=== PATIENT | male | born 1960 ===

== ENCOUNTER 2019-12-24 13:08 | Emergency (ER) | payer BC, SELFPAY ==
[2019-12-24 13:45] VITALS: BP 148/86; BP 160/110; PULSE 118; PULSE 96; RESP 18; TEMP 37.2; O2SAT 95; O2SAT 96; BMI 30.1
--- NOTE | 2019-12-24 13:53 | ED_ITS ---
HPI - Extremity Problem General Chief complaint: Extremity Problem Stated complaint: rt hip - leg pain Time Seen by Provider: 12/24/19 13:50 Source: patient Mode of arrival: ambulatory Limitations: no limitations History of Present Illness HPI Narrative: 59-year-old male with no significant past medical history presenting to the ED with complaints of atraumatic right hip pain radiating down to his right leg For a few days worse today reports he has a history of sciatica and is similar when compared to prior. Denies any other injuries complaints or concerns at this time. Related Data Allergies Allergy/AdvReac Type Severity Reaction Status Date / Time No Known Allergies Allergy Verified 12/24/19 13:44 [No Known Allergies*] Review of Systems Review of Systems: Constitutional : No trauma, No Weight loss, No Fever, No Chills, ENT/Mouth : No Hearing loss, No Ear Pain, No Nasal Congestion, No Sinus Pain, No Hoarseness, No sore throat, No Rhinorrhea, No Swallowing Difficulty Cardiovascular : No Chest Pain, No SOB Respiratory : No Cough, No Dyspnea Gastrointestinal : No Nausea, No Vomiting, No Diarrhea, No abdominal Pain, No Hematochezia, No Melena Genitourinary : No Dysuria, No Urinary Frequency, No Hematuria, No Urinary Incontinence, Musculoskeletal : No neck pain, No joint stiffness, No joint swelling Skin : No Skin Lesions, No rash or signs of infection Neuro : No Weakness, No headache, no loss of bowel or bladder incontinence, no saddle anesthesia Yes all other systems are reviewed and are negative PMFSH Past Medical History Attestation statement: The following information was validated with the patient. Medical History No known health problems Social History Social History Alcohol intake: current Alcohol intake frequency: 0-2 drinks per day Alcohol type: hard liquor Smoking Status: Never smoker Use of substances other than those prescribed or required for medical reasons: No Advance Directives: No Advance Directives Information Provided: No Physical Exam Vital Signs: Vital Signs: Vital Signs Temp Pulse Resp BP Pulse Ox 12/24/19 13:45 99 F 96 18 148/86 H 96 Body Mass Index 30.1 vital signs have been reviewed as normal and appeared to be correct. Blood pressure normal. Heart rate normal. Respiration rate normal. Temperature normal. Oxygen saturation normal. Appearance: Alert. Oriented X3. No acute distress. Head: Normal external exam. Normocephalic. Atraumatic. No Hernandez signs noted. No raccoon eyes noted Eyes: PERRLA. EOMI. Conjunctiva and sclera normal. Eyelids normal. ENT: EAC normal. TM's Normal. Pharynx normal. Uvula midline. Moist mucous membranes. No trismus noted. No drooling noted. No muffled voice noted. Neck: Normal inspection. Neck supple. FROM. No adenopathy. Thyroid Normal. No meningeal signs. No neck mass noted. CVS: Normal heart rate and rhythm. Heart sound normal. No murmurs noted. Pulses normal throughout. Respiratory: No respiratory distress. Painless inspiration. Breath sounds normal. No wheezes/rales/rhonchi noted. Chest nontender. No accessory muscle usage noted or decreased air movement noted. Abdomen: Soft and nontender. Bowel sounds normal in all 4 quadrants. No distention noted. No organomegaly noted. No visible injury noted. Back:No obvious deformities, or edema. Mild para-spinal muscular tenderness from lumbar region to coccyx. Full ROM in back and lower extremities. 5/5 strength hip extension/flexion, abduction, adduction. Mild Lumbar pain with hip flexion against resistance. Straight leg raise test negative on right; Straight leg raise test negative on left; Reflexes normal ankle and knee bilaterally; EHL motor strength normal bilaterally. no rashes/ lesion /induration/fluctuance or signs infection normal. patient has a slight limp to right leg although gait is otherwise within normal limits. Skin: Skin warm and dry. Normal skin color. Normal skin turgor. No rashes/lesi ons/lacerations noted. Extremities: No lower extremity edema. Extremities exhibit normal range of motion. Extremities nontender. Neuro: Oriented X 3. No motor deficit. No sensory deficit. Reflexes normal. Course Course Course Narrative: Pt c likely muscular pain, but could be herniated disc. Neuro exam shows no deficits. Not c/w AAA/epidural abscess/dissection. Not c/w Pyelo/UTI/kidney stone/spinal fx. Not cauda equina syndrome. No high risk Hx (Incont, fever, immunosupp, recent surgery/LP, coag, signif trauma, wt loss, puls mass, hx/o Ca, TB, or IVDU) to warrant MRI/CT today. DC c meds and f/u. MDM - Extremity (Nontraumatic) Imaging Data right hip/pelvis: Attestation: I personally reviewed and interpreted this imaging study as follows: Radiologist's impression: FINDINGS: AP PELVIS: There is normal symmetry of bilateral hip joints and SI joints. No gross bony abnormality seen. The soft tissues are normal. RIGHT HIP: There is no visible fracture, dislocation or bony erosive changes. The soft tissues are normal. IMPRESSION: Unremarkable AP pelvis. Unremarkable right hip exam.
--- NOTE | 2019-12-24 14:30 | XR_ITS ---
EXAMINATION: XR HIP, RIGHT CLINICAL INFORMATION: Right hip pain. COMPARISON: None TECHNIQUE: Two views of the right hip. AP view pelvis FINDINGS: AP PELVIS: There is normal symmetry of bilateral hip joints and SI joints. No gross bony abnormality seen. The soft tissues are normal. RIGHT HIP: There is no visible fracture, dislocation or bony erosive changes. The soft tissues are normal. IMPRESSION: Unremarkable AP pelvis. Unremarkable right hip exam.
[2019-12-24] MEDS: NaPROXEN 500 MG TABLET PO (14:53)
[2019-12-24] MEDS: oxyCODONE HCl Immed Release 5 MG TABLET PO (14:54)
[2019-12-24] MEDS: dexAMETHasone 2 MG TABLET 10 MG PO (14:55)
== END 2019-12-24 16:16 | disposition home or self-care (01) ==
PROVIDERS: Emergency Provider Emergency Medicine; PCP Internal Medicine
DX: S76.011A Strain of muscle, fascia and tendon of right hip, initial encounter (principal); X58.XXXA Exposure to other specified factors, initial encounter; M70.71 Other bursitis of hip, right hip; Y93.9 Activity, unspecified; Y92.9 Unspecified place or not applicable; Y99.9 Unspecified external cause status
CPT/HCPCS: 73502; 99283; 99284; J8540

== ENCOUNTER → 2019-12-31 11:30 | Outpatient (BNVA) | payer BC, SELFPAY | PROVIDERS: PCP Internal Medicine; Visit Provider Internal Medicine | DX: Z76.89 Persons encountering health services in other specified circumstances (principal) ==

== ENCOUNTER → 2020-02-03 11:05 | Outpatient (BNVA) | payer BC, SELFPAY | PROVIDERS: Visit Provider Internal Medicine | DX: Z76.89 Persons encountering health services in other specified circumstances (principal) ==

== ENCOUNTER → 2020-04-26 11:31 | Outpatient (BNVA) | payer BC, SELFPAY | PROVIDERS: Visit Provider Internal Medicine ==

== ENCOUNTER 2020-05-29 11:35 | Inpatient (IN) | payer BC, SELFPAY ==
--- NOTE | ~2020-05-29 | CT_ITS ---
EXAMINATION: CT HEAD WITHOUT CONTRAST CLINICAL INFORMATION: Seizure COMPARISON: Head CT 04/08/2014 TECHNIQUE: Contiguous axial imaging was performed from the skull base to vertex without intravenous administration of contrast. Reformatted coronal and sagittal images are provided for interpretation. Examination is limited due to motion artifact. This CT examination was performed using dose optimization techniques as appropriate, variously including the following: *Automated exposure control *Adjustment of mA and/or kV according to patient size (this includes techniques or standardized protocols for targeted exams where dose is matched to indication/reason for exam; i.e. extremities or head) *Use of iterative reconstruction technique DLP: 1352 mGy-cm FINDINGS: There is no evidence of acute intracranial hemorrhage or territorial infarction. No abnormal mass effect or midline shift is seen. [place] to white matter differentiation is well preserved. No extra-axial fluid collections are identified. The ventricles are normal in size. There is no abnormal attenuation within the brain parenchyma. Small to moderate sized suspected hematoma of the left parietal scalp. No underlying osseous abnormality. The mastoid air cells and visualized portions of the paranasal sinuses are well aerated. CT/CT head/brain wo con IMPRESSION: 1. Moderate-sized hematoma of the left parietal scalp. 2. No acute intracranial pathology.
--- NOTE | ~2020-05-29 | US_ITS ---
EXAMINATION: US ABDOMEN COMPLETE CLINICAL INFORMATION: Hepatitis. COMPARISON: Previous abdominal ultrasound most recent September 2019 TECHNIQUE: Real-time imaging of the abdominal viscera. FINDINGS: PANCREAS: Not visualized due to bowel gas. ABDOMINAL AORTA: The proximal, mid, and distal segments are normal in caliber. INFERIOR VENA CAVA: Visualized portions are normal. LIVER: The liver is normal in size. The liver contour is normal. Liver echotexture is increased. No focal hepatic lesion. There is no intrahepatic biliary duct dilatation seen. GALLBLADDER: Normal. The gallbladder is physiologically distended without evidence of stones, sludge, polyps, wall thickening or pericholecystic fluid. COMMON BILE DUCT: Normal in caliber measuring 0.3 cm in diameter. RIGHT KIDNEY: Normal. No hydronephrosis. No renal calculi or focal parenchymal lesions. The kidney measures 11 cm in maximum dimension. LEFT KIDNEY: Normal. No hydronephrosis. No renal calculi or focal parenchymal lesions. The kidney measures 12 cm in maximum dimension. SPLEEN: Normal. The spleen measures 10 cm in maximum dimension. FREE FLUID: None. US/US abdomen complete IMPRESSION: Echogenic liver similar to previous exam. No evidence of cirrhosis, focal liver lesion or ascites. Nonvisualization of the pancreas.
[2020-05-29 11:43] VITALS: BP 146/69; BP 150/130; PULSE 110; PULSE 127; RESP 24; TEMP 37.2; O2SAT 97; BMI 28.8
--- NOTE | 2020-05-29 11:49 | ED_ITS ---
HPI - Seizure General Chief Complaint: Seizure Stated Complaint: ? SZ,FOUND ON FLOOR @ WORK Time Seen by Provider: 05/29/20 11:39 History of Present Illness HPI Narrative: This is a 59 years old male with history of alcohol abuse was found in the floor outside the store after possible seizure. Upon the arrival of the EMS he was postictal gradually return to is normal sensorium. He arrives via awake and alert he states that his last drink was 3 days ago. He does not want detox is not suicidal. He is very tremulous Treatments prior to arrival: none Related Data Home Medications Medication Instructions Recorded Confirmed clonidine HCl 1 tab PO BID 05/29/20 05/29/20 lisinopril 1 tab PO DAILY 05/29/20 05/29/20 Previous Rx's Medication Instructions Recorded naproxen 500 mg PO BID PRN #14 tab 12/24/19 oxycodone-acetaminophen [Percocet] 1 tab PO Q6H PRN #14 tab 12/24/19 naltrexone 50 mg tablet 50 mg PO DAILY 30 Days #30 tab 04/26/20 Allergies Allergy/AdvReac Type Severity Reaction Status Date / Time No Known Allergies Allergy Verified 05/29/20 11:49 [No Known Allergies*] Review of Systems Review of Systems: Yes all other systems are reviewed and are negative Cardiovascular: Comments: Denies any chest pain Respiratory: Comments: Denies any shortness of breath PMFSH Past Medical History Medical History Alcohol use disorder Alcohol use disorder No known health problems Social History Social History Alcohol intake: current Alcohol intake frequency: 0-2 drinks per day Alcohol type: hard liquor Smoking Status: Never smoker Advance Directives: No Advance Directives Information Provided: Yes Physical Exam Vital Signs: Vital Signs: Last Vital Signs Temp 99.2 F 05/29/20 14:19 Pulse 97 05/29/20 14:19 Resp 18 05/29/20 14:19 BP 150/76 H 05/29/20 14:19 Pulse Ox 99 05/29/20 14:19 Body Mass Index 28.8 Const: Other: He is awake and alert he is very tremulous Orientation/consciousness: oriented to person, oriented to place, oriented to time and patient oriented x3 HENMT: Head: Yes normal to inspection Ears: hearing grossly normal bilater ally General nose exam: Normal external nose present Face and sinus: Yes normal facial exam Eyes: General: appearance normal, both eyes and all related structures Neck: Neck: Yes normal visual inspection Chest: Chest palpation & inspection: normal inspection of the chest and normal palpation of entire chest wall Resp: Effort & Inspection: normal respiratory effort Cardio: Palpation: normal PMI Rate: regular rate Rhythm: regular rhythm GI: Other: Soft not tender Skin: General skin exam: no rashes or lesions noted Neuro: General: oriented to person, oriented to place, oriented to time and patient oriented x3 Course Reevaluation(s) Reevaluation #1: At this time and the patient is feeling much better his initial tachycardia is completely resolved . He he does not want detox he has no suicidalhe would like to go home Time: 14:05 Time: 14:54 Reevaluation #3: Patient became more agitated confused pull the IV, at this point I think is reasonable to me depression the for alcohol withdrawal and will start him on phenobarbital protocol will place a call to the hospitalist MDM - Seizure Lab Data Result diagrams: 05/29/20 12:07 05/29/20 12:07 Labs: Lab Results 05/29/20 05/29/20 05/29/20 Range/Units 12:07 12:07 12:07 WBC 6.2 (4.8-10.8) X10*3/uL RBC 3.69 L (4.60-5.80) X10*6/uL Hgb 12.3 L (14.0-18.0) g/dl Hct 36.2 L (42-52) % MCV 98.1 H (80-98) fL MCH 33.3 H (27.0-33.0) pg MCHC 34.0 (31.0-36.0) g/dl RDW 12.5 (11.0-16.0) % Plt Count 60 L (160-400) X10*3/uL MPV 9.7 (9.4-12.4) fL Immature Gran % (Auto) 0.3 (0.0-0.4) % Neut % (Auto) 80.4 H (45-73) % Lymph % (Auto) 10.6 L (20-40) % [place] % (Auto) 8.2 (2-11) % Eos % (Auto) 0.2 (0-4) % Baso % (Auto) 0.3 (0-2) % Lymph # (Auto) 0.7 L (1.2-4.9) X10*3/uL [place] # (Auto) 0.5 (0.1-1.2) X10*3/uL Eos # (Auto) 0.0 (0.0-0.4) X10*3/uL Baso # (Auto) 0.0 (0.0-0.2) X10*3/uL Abs Immat Gran (auto) 0.02 (0.00-0.03) X10*3/uL Absolute Neuts (auto) 5.0 (2.0-8.3) X10*3/uL Absolute Nucleated RBC 0.000 (0.0-0.012) X10*3/uL Nucleated RBC % (auto) 0.0 (0.0-0.2) /100WBC Smear Tech's Comments VERIFIED Sodium 139 (135-145) mmol/L Potassium 3.4 (3.3-5.1) mmol/L Chloride 97 (96-108) mmol/L Carbon Dioxide 24 (22-29) mmol/L Anion Gap 21 H (12-20) BUN 16 (9-16) mg/dL Creatinine 1.05 (0.5-1.4) mg/dL Estim Creat Clear Calc 79.9 Estimated GFR > 60 Random Glucose 174 H (60-115) mg/dL Calcium 9.0 (8.4-10.2) mg/dL Magnesium 1.7 (1.6-2.6) mg/dL Total Bilirubin 2.4 H (0.0-1.0) mg/dL AST 117 H (5-37) U/L ALT 41 H (0-40) U/L Alkaline Phosphatase 91 (39-117) U/L Total Protein 6.7 (6.5-8.0) g/dL Albumin 4.3 (3.5-5.0) g/dL Ethyl Alcohol < 10 mg/dL Imaging Data CT scan - head: Radiologist's impression: FINDINGS: There is no evidence of acute intracranial hemorrhage or territorial infarction. No abnormal mass effect or midline shift is seen. Tomlin to white matter differentiation is well preserved. No extra-axial fluid collections are identified. The ventricles are normal in size. There is no abnormal attenuation within the brain parenchyma. Small to moderate sized suspected hematoma of the left parietal scalp. No underlying osseous abnormality. The mastoid air cells and visualized portions of the paranasal sinuses are well aerated. CT/CT head/brain wo con IMPRESSION: 1. Moderate-sized hematoma of the left parietal scalp. 2. No acute intracranial pathology. ECG Data Attestation: I personally reviewed and interpreted this ECG as follows: ECG interpretation date: 05/29/20 ECG interpretation time: 12:54 Pacemaker model: Normal sinus rhythm a rate these [address]-T change Critical Care Time Critical Care Time Critical Care Time: Yes (IV lorazepam ;IM phenobarbital) Total Critical Care Time: 60 Attestation: IV lorazepam a to 2 mg , IM phenobarbital a Discharge Plan Discharge Clinical Impression: Alcohol withdrawal seizure Patient Disposition: Admitted As Inpatient
[2020-05-29] MEDS: LORazepam 2 MG/ML VIAL 1 MG IVPUSH ×2 (11:55→12:01)
[2020-05-29] MEDS: 0.9 % Sodium Chloride 1,000 ML 999 ML IVCONT (11:55)
--- NOTE | 2020-05-29 12:09 | PC.NURSE ---
seizure pads in place. pt medicated as per emr.
--- NOTE | 2020-05-29 12:10 | ECG_ITS ---
Test Reason : SEIZURE Blood Pressure : / mmHG Vent. Rate : 106 BPM Atrial Rate : 106 BPM P-R Int : 166 ms QRS Dur : 092 ms QT Int : 366 ms P-R-T Axes : 053 021 033 degrees QTc Int : 486 ms Sinus tachycardia Otherwise normal ECG When compared with ECG of 08-APR-2014 20:20, No significant change was found Referred By: Maurilio Mejia Electronically Signed By:NA HERNANDEZ
[2020-05-29 12:15] LABS: Eosinophils Percent Auto 0.2 % (0-4); Hemoglobin 12.3 g/dl (14.0-18.0); Imm Gran Abs Auto 0.02 X10*3/uL (0.00-0.03); Imm Gran Pct Auto 0.3 % (0.0-0.4); MANUAL DIFF FLAG SCAN; Monocytes Percent Auto 8.2 % (2-11); PLT CLUMP 1; Red Cell Distribution Width 12.5 % (11.0-16.0); SCAN SMEAR FLAG 1
[2020-05-29 12:17] LABS: Basophils Percent Auto 0.3 % (0-2); Hematocrit 36.2 % (42-52); Lymphocytes Absolute Auto 0.7 X10*3/uL (1.2-4.9); Lymphocytes Percent Auto 10.6 % (20-40); Mean Corpuscular Hemoglobin 33.3 pg (27.0-33.0); Mean Corpuscular Volume 98.1 fL (80-98); Mean Platelet Volume 9.7 fL (9.4-12.4); Monocytes Absolute Auto 0.5 X10*3/uL (0.1-1.2); Neutrophils Percent Auto 80.4 % (45-73); Red Blood Count 3.69 X10*6/uL (4.60-5.80); White Blood Count 6.2 X10*3/uL (4.8-10.8)
[2020-05-29 12:46] LABS: Alanine Aminotransferase 41 U/L (0-40); Albumin Level 4.3 g/dL (3.5-5.0); Alkaline Phosphatase 91 U/L (39-117); Anion Gap 21 (12-20); Aspartate Amino Transferase 117 U/L (5-37); Bilirubin Total 2.4 mg/dL (0.0-1.0); Blood Urea Nitrogen 16 mg/dL (9-16); Carbon Dioxide 24 mmol/L (22-29); Chloride 97 mmol/L (96-108); Creatinine Clr Calc Pharmacy 79.9; Estimated Glomerular Filt Rate > 60; Glucose Random 174 mg/dL (60-115); Magnesium 1.7 mg/dL (1.6-2.6); Potassium 3.4 mmol/L (3.3-5.1); Sodium 139 mmol/L (135-145); Total Protein 6.7 g/dL (6.5-8.0)
[2020-05-29 12:47] LABS: Platelet Count 60 X10*3/uL (160-400)
[2020-05-29 12:48] LABS: SLIDE REVIEW VERIFIED
[2020-05-29 12:54] LABS: Ethanol < 10 mg/dL
[2020-05-29 14:19] VITALS: BP 150/76; PULSE 97; RESP 18; TEMP 37.3; O2SAT 99
[2020-05-29] MEDS: PHENobarbitaL sodium 130 MG/ML VIAL 274 MG IM (14:50)
--- NOTE | 2020-05-29 14:50 | PC.NURSE ---
PT TO CT SCAN. CONFUSED, REMOVED IV. EASILY REDIRECTED. AWARE OF PLAN TO ADMIT. MED REC COMPLETED
--- NOTE | 2020-05-29 15:44 | PM.IMHP ---
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 He was at a store today and was found outside of the store with what appeared to be a seizure and there was brought by the EMS to the emergency room initially he was said to be very agitated confused with postictal state and there was given Ativan and seemed to have a senior given significantly improved and is back to his normal sensorium. He admits that he drinks alcohol although he is not very specific on the amount that he drinks on a daily basis his last drank about 2 or 3 days ago. He does have some more mild tremors and is a little anxious particularly about stain in the hospital tonight. CT head shows scalp hematoma, LFTS are high, and has anemia and thrombocytopenia Review of Systems Review of Systems: Gen: no fever Resp: no sob, no cough CV: no chest, no LOWE, no leg edema GI: No n/v, no abd pain Neuro: No confusion, has some tremors Yes all other systems are reviewed and are negative [facility] Medical History (Updated 05/29/20 @ 16:01 by Jj Reynolds MD) Alcohol use disorder Alcohol use disorder No known health problems Pertinent family history: Mother alive with Alzheimer's. Father of complications of Alzheimer's disease. Social History Alcohol intake: current Alcohol intake frequency: 0-2 drinks per day Alcohol type: hard liquor Smoking Status: Never smoker Advance Directives: No Advance Directives Information Provided: Yes Meds Allergies Allergy/AdvReac Type Severity Reaction Status Date / Time No Known Allergies Allergy Verified 05/29/20 11:49 [No Known Allergies*] Active Medications: Current Medications Generic Name Dose Route Start Last Admin Trade Name Freq PRN Reason Stop Dose Admin Medication 1 each 05/29/20 14:45 No Benzodiazepines MISCELLANE DAILY YEIMI Phenobarbital 45 mg 05/30/20 09:00 Phenobarbital 15 Mg Tablet PO 05/31/20 21:01 BID YEIMI Protocol Phenobarbital 30 mg 06/01/20 09:00 Phenobarbital 30 Mg Tablet PO 06/02/20 21:01 BID YEIMI Protocol Phenobarbital 30 mg 06/03/20 09:00 Phenobarbital 30 Mg Tablet PO 06/04/20 09:01 DAILY [facility] Protocol Phenobarbital Sodium 205 mg 05/29/20 17:45 Phenobarbital Sodium 65 Mg/Ml Vial IM 05/29/20 20:46 Q3H [facility] Protocol Home Medications Medication Instructions Recorded Confirmed Last Taken Type clonidine HCl 1 tab PO BID 05/29/20 05/29/20 Unknown History lisinopril 1 tab PO DAILY 05/29/20 05/29/20 Unknown History Physical Exam Vital Signs and Narrative: Vital Signs: Last Vital Signs Temp 99.2 F 05/29/20 14:19 Pulse 97 05/29/20 14:19 Resp 18 05/29/20 14:19 BP 150/76 H 05/29/20 14:19 Pulse Ox 99 05/29/20 14:19 Body Mass Index 28.8 Constitutional Awake and Alert, No apparent distress Neck Supple, No lymphadenopathy Heent no sclera icteris Cardiovascular RRR, No M/R/G, S1 S2, No S3 S4, No pedal edema Respiratory Lungs clear, No respiratory distress Gastrointestinal Non tender, Non-distended Skin No rash Neurological Alert & oriented x3 Psychological Appropriate affect Results Labs CBC and Chem 7: 05/29/20 12:07 05/29/20 12:07 Labs: Laboratory Results - last 24 hr 05/29/20 05/29/20 05/29/20 12:07 12:07 12:07 MCV 98.1 H MCH 33.3 H MCHC 34.0 RDW 12.5 Plt Count 60 L MPV 9.7 Immature Gran % (Auto) 0.3 Neut % (Auto) 80.4 H Lymph % (Auto) 10.6 L [place] % (Auto) 8.2 Eos % (Auto) 0.2 Baso % (Auto) 0.3 Lymph # (Auto) 0.7 L [place] # (Auto) 0.5 Eos # (Auto) 0.0 Baso # (Auto) 0.0 Abs Immat Gran (auto) 0.02 Absolute Neuts (auto) 5.0 Absolute Nucleated RBC 0.000 Nucleated RBC % (auto) 0.0 Smear Tech's Comments VERIFIED Anion Gap 21 H Estim Creat Clear Calc 79.9 Estimated GFR > 60 Random Glucose 174 H Calcium 9.0 Magnesium 1.7 Total Bilirubin 2.4 H AST 117 H ALT 41 H Alkaline Phosphatase 91 Total Protein 6.7 Albumin 4.3 Ethyl Alcohol < 10 Imaging Radiologist's Impressions: Impressions Head CT 05/29/20 14:14 IMPRESSION: 1. Moderate-sized hematoma of the left parietal scalp. 2. No acute intracranial pathology. Assessment and Plan (1) Alcohol withdrawal seizure: Status: Acute (2) HTN (hypertension): Status: Acute (3) Alcohol use disorder: Status: Acute (4) Alcohol use disorder: Status: Acute 59 year male with alcohol dependency here with seizure and highly suspected of alchol withdrawal seizure 1. 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 Alcohol Withdrawal--Phenobarbial, Folic acid thiamine 3. HTN-continue Lisinopril 4. Chronic back pain--oxycodone 6. Anemia, thrombocytopenia--likely chronic related to alchol, check US of liver 7. Transaminitis--likely related to chronic clearly disease from alcohol use. Ultrasound as suggested above. 8. Scalp Hematomr 7. DVT prophylaxis --Mechanical device d/t low platlet and Scalp hematoma
[2020-05-29 16:27] LABS: COVID-19 Test Negative (Negative)
[2020-05-29 17:54] VITALS: BP 123/69; PULSE 84; RESP 18; TEMP 37.1; O2SAT 98
[2020-05-29] MEDS: PHENobarbitaL sodium 65 MG/ML VIAL 205 MG IM ×2 (17:58→21:58)
--- NOTE | 2020-05-29 17:58 | PC.NURSE ---
pt in nad at this time. no seizure activity since arrival to facility. son here briefly to visit and receive update. pt awaiting room #.
[2020-05-29 18:17] VITALS: BP 132/71; PULSE 87; RESP 15; TEMP 36.8; O2SAT 98
[2020-05-29] MEDS: Dextrose 5 % and 0.45 % NaCl 1,000 ML 100 ML IVCONT (19:13)
[2020-05-29 19:14] VITALS: BP 138/77; PULSE 86; RESP 18; O2SAT 98
--- NOTE | 2020-05-29 19:14 | PM.NEUROCN ---
History of Present Illness Data of Consult Service Date: 05/29/20 Primary Care Provider: Michi Dumont MD HPI Reason for consult: Possible SZ. Alcohol abuse 59yr man admitted after a syncope or possible sz and agitation. He tidwell sno recall . No previous syncope or Sz. No tongue bite or incontinence. H/O alcohol abuse with zero alcohol level on admission Review of Systems Eyes: Eyes: Reports no additional eye complaints ENT: Reports system reviewed and no additional complaints, except as documented and Reports Normal hearing present Cardiovascular: Cardiovascular: Reports no additional cardiovascular complaints Respiratory: Respiratory: Reports no additional respiratory complaints Gastrointestinal: Gastrointestinal: Reports no additional gastrointestinal complaints Genitourinary: Genitourinary: Reports no additional male genitourinary complaints Musculoskeletal: Musculoskeletal: Reports no additional musculoskeletal complaints Integumentary/Breasts: Skin/Breast: Reports system reviewed and no additional complaints, except as docu Neurologic: Reports as per HPI and Reports Normal hearing present Psychiatric: Psychiatric: Reports as per HPI Endocrine: Endocrine: Reports no additional endocrine complaints Hematologic/Lymphatic: Hematologic/Lymphatic: Reports no additional hematologic/lymphatic complaints Allergic/Immunologic: Allergic/Immunologic: Reports no additional allergic/immunologic complaints [facility] Past Medical History Medical History Alcohol use disorder Alcohol use disorder No known health problems Social History Social History Alcohol intake: current Alcohol intake frequency: a few times a week Alcohol type: hard liquor Smoking Status: Never smoker Use of substances other than those prescribed or required for medical reasons: No Advance Directives: No Advance Directives Information Provided: Yes Meds Allergies Allergy/AdvReac Type Severity Reaction Status Date / Time No Known Allergies Allergy Verified 05/29/20 11:49 [No Known Allergies*] Active Medications: Current Medications Generic Name Dose Route Start Last Admin Trade Name Freq PRN Reason Stop Dose Admin Dextrose/Sodium Chloride 1,000 mls @ 100 mls/hr 05/29/20 17:59 05/29/20 19:13 D51/2ns IVCONT 05/30/20 03:58 100 mls/hr .Q10H YEIMI Administration Medication 1 each 05/29/20 14:45 No Benzodiazepines MISCELLANE DAILY YEIMI Naltrexone HCl 50 mg 05/30/20 09:00 Naltrexone Hcl 50 Mg Tablet PO DAILY YEIMI Naproxen 500 mg 05/29/20 17:59 Naproxen 500 Mg Tablet PO BID PRN pain Phenobarbital 45 mg 05/30/20 09:00 Phenobarbital 15 Mg Tablet PO 05/31/20 21:01 BID [facility] Protocol Phenobarbital 30 mg 06/01/20 09:00 Phenobarbital 30 Mg Tablet PO 06/02/20 21:01 BID [facility] Protocol Phenobarbital 30 mg 06/03/20 09:00 Phenobarbital 30 Mg Tablet PO 06/04/20 09:01 DAILY [facility] Protocol Phenobarbital Sodium 205 mg 05/29/20 17:45 05/29/20 17:58 Phenobarbital Sodium 65 Mg/Ml Vial IM 05/29/20 20:46 205 mg Q3H [facility] Administration Protocol Sodium Chloride 3 ml 05/30/20 00:00 0.9 % Sodium Chloride Flush 3 Ml Syringe IVFLUSH QSHIFT [facility] Zolpidem Tartrate 5 mg 05/29/20 17:59 Zolpidem Tartrate 5 Mg Tablet PO BEDTIME PRN Insomnia Home Medications Medication Instructions Recorded Confirmed Last Taken Type clonidine HCl 1 tab PO BID 05/29/20 05/29/20 Unknown History lisinopril 1 tab PO DAILY 05/29/20 05/29/20 Unknown History Physical Exam Vital Signs: Vital Signs: Last Vital Signs Temp 98.3 F 05/29/20 18:17 Pulse 87 05/29/20 18:17 Resp 15 05/29/20 18:17 BP 132/71 05/29/20 18:17 Pulse Ox 98 05/29/20 18:17 Body Mass Index 28.8 Const: General: cooperative, comfortable, no acute distress, well developed, alert and awake Nutritional Appearance: well nourished Orientation/consciousness: oriented to person, oriented to place and oriented to time Limitations: no limitations HENMT: Head: Yes normal to inspection, Yes normocephalic and Yes atraumatic Ears: hearing grossly normal bilaterally General nose exam: Normal external nose present Face and sinus: Yes normal facial exam Mouth: Normal oral and palatal mucosa present Eyes: General: appearance normal, both eyes and all related structures Visual Jay: normal visual jay by confrontation Alignment and Position: alignment normal Periorbital: periorbital findings normal Eyelids: Yes eyelids normal Conjunctivae: conjunctivae normal Sclerae: sclerae normal Corneas: corneas normal Pupils: Equal, round and reactive pupils present and Pupil accommodation reflex normal EOM: EOMs intact bilaterally Direct Ophthalmoscopy: normal light reflex Neck: Neck: Yes normal visual inspection, Yes full ROM and Yes no meningeal signs Thyroid: Thyroid normal Carotids: normal carotid upstroke and bounding pulses Chest: Chest palpation & inspection: normal inspection of the chest Resp: Effort & Inspection: normal respiratory effort Auscultation: clear to auscultation bilaterally Cardio: Rate: regular rate Rhythm: regular rhythm Heart sounds: S1 normal heart sound present and S2 normal heart sound present Peripheral pulses: Peripheral pulses 2+ throughout GI: Inspection: Yes normal to inspection Percussion: Yes normal to percussion Auscultation: normal bowel sounds Rectal Exam - Male: Yes deferred Back/Spine/Pelvis: Cervical Spine: normal cervical lordosis and cervical ROM normal Thoracic/Lumbar Spine: thoracic and lumbar spine normal to inspection Skin: General skin exam: no rashes or lesions noted Neuro: General: oriented to person, oriented to place, oriented to time, gait normal, tone normal, moves all extremities, Normal light touch and pain sensation, no meningeal signs, no focal motor deficits, CN's II-XI intact bilaterally, normal sensation to monofilament and deep tendon reflexes 2+ bilaterally Cranial nerves: Yes CN's II-XII intact bilaterally, Yes Equal, round and reactive pupils present, Yes Bilaterally intact EOM present, Yes Nystagmus not present, Yes Normal facial strength present, Yes Midline tongue present, Yes Normal gag reflex present, Yes Symmetric palate elevation present, Yes Normal hearing present and Yes Ability to bilaterally rotate head present Cognition (Neuro): normal cognition Speech: Other speech findings present (Neuro) Gait exam (Neuro): Normal gait present Motor exam (neuro): 5/5 motor strength present throughout, Pronator motor function not present, no tremor noted, no asterixis, Motor fasciculations not present, Normal motor muscle tone present throughout and Motor abnormalities not present Sensory Exam: Bilaterally intact graphesthesia Deep tendon reflexes (DTR's): Right triceps reflex intensity grade: 2+, Left triceps reflex intensity grade: 2+, Rt Biceps (C5, C6): 2+, Left biceps reflex intensity grade: 2+, Right brachioradialis reflex intensity grade: 2+, Left brachioradialis reflex intensity grade: 2+, Right patellar reflex intensity grade: 2+, Left patellar reflex intensity grade: 2+, Right ankle reflex intensity grade: 2+ and Left ankle reflex intensity grade: 2+ Plantar Reflex Responses: downgoing: right, left and bilateral Coordination: [id number] test normal, [id number] test normal, tandem gait normal and Romberg test negative Pupils: Normal pupillary reactivity/response: bilateral Extrem: General: Yes normal to inspection, Yes normal exam except as noted and Yes no pedal edema Psych: Appearance: grossly normal Mental Status: mental status grossly normal Speech and movement: Normal speech and movement present and Clear speech present Affect: normal affect Attitude: cooperative Thought process: Normal thought process present Results Labs CBC & Chem 7: 05/29/20 12:07 05/29/20 12:07 Labs: Short CBC 05/29/20 Range/Units 12:07 WBC 6.2 (4.8-10.8) X10*3/uL Hgb 12.3 L (14.0-18.0) g/dl Hct 36.2 L (42-52) % Plt Count 60 L (160-400) X10*3/uL BMP 05/29/20 12:07 Sodium 139 Potassium 3.4 Chloride 97 Carbon Dioxide 24 BUN 16 Creatinine 1.05 Calcium 9.0 Liver Function 05/29/20 Range/Units 12:07 Total Bilirubin 2.4 H (0.0-1.0) mg/dL AST 117 H (5-37) U/L ALT 41 H (0-40) U/L Alkaline Phosphatase 91 (39-117) U/L Albumin 4.3 (3.5-5.0) g/dL Assessment and Plan (1) Alcohol withdrawal seizure: Problem details: h/o alcohol abuse with zero level on adm . Probable alcohol withdrawl sz. R/o causes of syncope and other causes of Sz Status: Acute CT brain negative except scalp hematoma. No intracranial injury or abnormality. EEG on Sunday. Watch for DTs. Alcohol counselling. (2) Alcohol use disorder: Status: Acute Counselling and detox
--- NOTE | 2020-05-29 19:19 | PC.NURSE ---
Dextrose 5% and 0.45% Sodium Chloride infusing as ordered at 100ml/hour. Pt denies pain, denies complaints at this time. Vital signs stable. Denies SI/HI. Seizure precautions in place. Will continue to monitor.
[2020-05-29 20:00] VITALS: BP 154/75; PULSE 79; RESP 18; TEMP 37.3; O2SAT 98
--- NOTE | 2020-05-29 20:12 | PC.NURSE ---
CALL MADE UP TO [facility] OR REPORT, EXPECTING CALL BACK
--- NOTE | 2020-05-29 20:23 | PC.NURSE ---
Called [facility], awaiting call back to give RN to RN report. preparing for admission to room 485.
[2020-05-29] MEDS: 0.9 % Sodium Chloride Flush 3 ML SYRINGE IVFLUSH (22:01)
[2020-05-30] VITALS (7 sets, daily range): BP systolic 112–158; BP diastolic 63–91; PULSE 81–91; RESP 15–18; TEMP 36.5–37.3; O2SAT 97–99
--- NOTE | 2020-05-30 09:07 | MHC.CM.PN ---
CM met with Patient and spoke with / Flavia. Patient lives in a house with his . Patient's Son/Prateek lives next door and is a Therapist at [employer] in [place].Patient is presently taking Naltrexone(from [facility]) for ETOH, and is here with Alcohol Withdrawal Seizure.Patient has no HCP. PCP is Dr. Michi Dumont. The goal for dc is home VS CARE TEAM INTERVENTIONS; CM has initiated and will follow for dc planning. Patient is out of work on [employer] Disability after back Surgery where a cyst was removed. CM will follow.
[2020-05-30] MEDS: 0.9 % Sodium Chloride Flush 3 ML SYRINGE IVFLUSH ×3 (10:01→22:17)
[2020-05-30] MEDS: Naltrexone HCl 50 MG TABLET PO (10:03)
[2020-05-30] MEDS: PHENobarbitaL 15 MG TABLET 45 MG PO ×2 (10:03→22:13)
[2020-05-30 10:17] LABS: Hemoglobin 12.1 g/dl (14.0-18.0); Imm Gran Abs Auto 0.01 X10*3/uL (0.00-0.03); Imm Gran Pct Auto 0.2 % (0.0-0.4); MANUAL DIFF FLAG SCAN; Monocytes Percent Auto 7.1 % (2-11); PLT CLUMP 1; SCAN SMEAR FLAG 1
[2020-05-30 10:19] LABS: Basophils Percent Auto 0.4 % (0-2); Eosinophils Absolute Auto 0.1 X10*3/uL (0.0-0.4); Eosinophils Percent Auto 1.6 % (0-4); Hematocrit 35.9 % (42-52); Lymphocytes Absolute Auto 1.1 X10*3/uL (1.2-4.9); Lymphocytes Percent Auto 19.8 % (20-40); Mean Corpuscular HGB Conc 33.7 g/dl (31.0-36.0); Mean Corpuscular Hemoglobin 33.2 pg (27.0-33.0); Mean Corpuscular Volume 98.4 fL (80-98); Mean Platelet Volume 10.4 fL (9.4-12.4); Monocytes Absolute Auto 0.4 X10*3/uL (0.1-1.2); Neutrophils Percent Auto 70.9 % (45-73); Red Blood Count 3.65 X10*6/uL (4.60-5.80); Red Cell Distribution Width 12.2 % (11.0-16.0); White Blood Count 5.6 X10*3/uL (4.8-10.8)
[2020-05-30 10:22] LABS: Platelet Count 62 X10*3/uL (160-400)
[2020-05-30 10:23] LABS: Prothrombin Time 12.3 SEC (10.8-13.0)
[2020-05-30 10:51] LABS: Alanine Aminotransferase 44 U/L (0-40); Alkaline Phosphatase 85 U/L (39-117); Anion Gap 16 (12-20); Aspartate Amino Transferase 114 U/L (5-37); Bilirubin Total 1.7 mg/dL (0.0-1.0); Blood Urea Nitrogen 11 mg/dL (9-16); Calcium 8.7 mg/dL (8.4-10.2); Carbon Dioxide 28 mmol/L (22-29); Chloride 97 mmol/L (96-108); Creatinine Clr Calc Pharmacy 107.5; Estimated Glomerular Filt Rate > 60; Glucose Random 154 mg/dL (60-115); Iron 69 mcg/dL (45-160); Magnesium 1.7 mg/dL (1.6-2.6); Percent Iron Saturation 27 % (15-50); Potassium 3.6 mmol/L (3.3-5.1); Sodium 137 mmol/L (135-145); Total Iron Binding Capacity 253 mcg/dL (228-428); Total Protein 6.4 g/dL (6.5-8.0); Unsaturated Iron Binding 184 ug/dL
[2020-05-30 12:17] LABS: Ferritin 3811 ng/mL (20-250)
--- NOTE | 2020-05-30 16:14 | HO.PM.IMPN ---
Subjective Subjective Date of Service: 05/30/20 Interval History: confirms pt's heavy EtOH use was previously on chronic tramadol for back pain but weaned off after had back surgery no further seizures pt denies tremors Physical Exam Vital Signs: Vital Signs: Last Vital Signs Temp 99.2 F 05/30/20 15:28 Pulse 91 05/30/20 15:28 Resp 18 05/30/20 15:28 BP 112/63 05/30/20 15:28 Pulse Ox 98 05/30/20 15:28 Body Mass Index 28.8 Gen: in no acute distress HEENT: sclera anicteric, moist mucus membranes Neck: supple Lungs: clear to auscultation bilaterally Heart: regular rate and rhythm, no murmurs Abd: soft, non-tender, non-distended, no HSM, no stigmata of cirrhosis Ext: no edema Skin: warm/well-perfused Neuro: alert and oriented x3, no focal findings, no asterixis Psych: appropriate affect Objective Data Current Medications Generic Name Dose Route Start Last Admin Trade Name Shira PRN Reason Stop Dose Admin Medication 1 each 05/29/20 14:45 No Benzodiazepines MISCELLANE DAILY YEIMI Naltrexone HCl 50 mg 05/30/20 09:00 05/30/20 10:03 Naltrexone Hcl 50 Mg Tablet PO 50 mg DAILY YEIMI Administration Naproxen 500 mg 05/29/20 17:59 Naproxen 500 Mg Tablet PO BID PRN pain Phenobarbital 45 mg 05/30/20 09:00 05/30/20 10:03 Phenobarbital 15 Mg Tablet PO 05/31/20 21:01 45 mg BID YEIMI Administration Protocol Phenobarbital 30 mg 06/01/20 09:00 Phenobarbital 30 Mg Tablet PO 06/02/20 21:01 BID YEIMI Protocol Phenobarbital 30 mg 06/03/20 09:00 Phenobarbital 30 Mg Tablet PO 06/04/20 09:01 DAILY YEIMI Protocol Sodium Chloride 3 ml 05/30/20 00:00 05/30/20 16:10 0.9 % Sodium Chloride Flush 3 Ml Syringe IVFLUSH 3 ml QSHIFT YEIMI Administration Zolpidem Tartrate 5 mg 05/29/20 17:59 Zolpidem Tartrate 5 Mg Tablet PO BEDTIME PRN Insomnia Labs CBC & Chem 7: 05/30/20 10:06 05/30/20 10:06 Labs: Laboratory Results - last 24 hr 05/29/20 05/30/20 05/30/20 15:54 10:06 10:06 WBC 5.6 RBC 3.65 L Hgb 12.1 L Hct 35.9 L MCV 98.4 H MCH 33.2 H MCHC 33.7 RDW 12.2 Plt Count 62 L MPV 10.4 Immature Gran % (Auto) 0.2 Neut % (Auto) 70.9 Lymph % (Auto) 19.8 L [place] % (Auto) 7.1 Eos % (Auto) 1.6 Baso % (Auto) 0.4 Lymph # (Auto) 1.1 L [place] # (Auto) 0.4 Eos # (Auto) 0.1 Baso # (Auto) 0.0 Abs Immat Gran (auto) 0.01 Absolute Neuts (auto) 4.0 Absolute Nucleated RBC 0.000 Nucleated RBC % (auto) 0.0 Smear Tech's Comments Not Reportable PT INR Sodium 137 Potassium 3.6 Chloride 97 Carbon Dioxide 28 Anion Gap 16 BUN 11 Creatinine 0.78 Estim Creat Clear Calc 107.5 Estimated GFR > 60 Random Glucose 154 H Calcium 8.7 Magnesium 1.7 Iron 69 TIBC 253 % Saturation 27 Unsat Iron Binding 184 Ferritin Total Bilirubin 1.7 H AST 114 H ALT 44 H Alkaline Phosphatase 85 Total Protein 6.4 L Albumin 4.0 COVID-19 ([facility]) Negative COVID-19 Clin Com See Note 05/30/20 05/30/20 10:06 10:06 WBC RBC Hgb Hct MCV MCH MCHC RDW Plt Count MPV Immature Gran % (Auto) Neut % (Auto) Lymph % (Auto) [place] % (Auto) Eos % (Auto) Baso % (Auto) Lymph # (Auto) [place] # (Auto) Eos # (Auto) Baso # (Auto) Abs Immat Gran (auto) Absolute Neuts (auto) Absolute Nucleated RBC Nucleated RBC % (auto) Smear Tech's Comments PT 12.3 INR 1.0 Sodium Potassium Chloride Carbon Dioxide Anion Gap BUN Creatinine Estim Creat Clear Calc Estimated GFR Random Glucose Calcium Magnesium Iron TIBC % Saturation Unsat Iron Binding Ferritin 3811 H Total Bilirubin AST ALT Alkaline Phosphatase Total Protein Albumin COVID-19 ([facility]) COVID-19 Clin Com Impressions Abdomen Ultrasound 05/30/20 12:54 IMPRESSION: Echogenic liver similar to previous exam. No evidence of cirrhosis, focal liver lesion or ascites. Nonvisualization of the pancreas. Assessment and Plan (1) Alcohol withdrawal seizure: Problem details: h/o alcohol abuse with zero level on adm . Probable alcohol withdrawl sz. R/o causes of syncope and other causes of Sz Status: Acute (2) Alcohol use disorder: Status: Acute (3) HTN (hypertension): Status: Acute Assessment and Plan: hospital d#2 59yo M with hx EtOH dependency, HTN admitted for seizure likely due to EtOH withdrawal # EtOH withdrawal sz - Neuro consulted, EEG pending, sz precautions - phenobarbital taper, folic acid, thiamine - CARE team consult - continue naltrexone # EtOH hepatitis - no signs of cirrhosis, MDF low, no steroids or pentoxyfilline indicated # thrombocytopenia # anemia - likely due to marrow suppression by EtOH, monitor CBC # scalp hematoma - no intracrnial hemorrhage # elevated ferritin - to consider outpt workup for hemochromatosis # HTN - lisinopril # VTE ppx - SCDs
[2020-05-31] VITALS (7 sets, daily range): BP systolic 128–155; BP diastolic 70–84; PULSE 72–96; RESP 18–19; TEMP 36.2–37.1; O2SAT 97–99
[2020-05-31 06:30] LABS: MANUAL DIFF FLAG NO
[2020-05-31 06:50] LABS: Basophils Percent Auto 0.5 % (0-2); Eosinophils Absolute Auto 0.1 X10*3/uL (0.0-0.4); Eosinophils Percent Auto 1.3 % (0-4); Hematocrit 34.5 % (42-52); Hemoglobin 11.8 g/dl (14.0-18.0); Imm Gran Abs Auto 0.03 X10*3/uL (0.00-0.03); Imm Gran Pct Auto 0.5 % (0.0-0.4); Lymphocytes Absolute Auto 0.8 X10*3/uL (1.2-4.9); Lymphocytes Percent Auto 13.4 % (20-40); Mean Corpuscular HGB Conc 34.2 g/dl (31.0-36.0); Mean Corpuscular Hemoglobin 33.2 pg (27.0-33.0); Mean Corpuscular Volume 97.2 fL (80-98); Mean Platelet Volume 10.5 fL (9.4-12.4); Monocytes Absolute Auto 0.5 X10*3/uL (0.1-1.2); Monocytes Percent Auto 7.5 % (2-11); Neutrophils Absolute Auto 4.8 X10*3/uL (2.0-8.3); Neutrophils Percent Auto 76.8 % (45-73); Red Blood Count 3.55 X10*6/uL (4.60-5.80); Red Cell Distribution Width 11.9 % (11.0-16.0); White Blood Count 6.3 X10*3/uL (4.8-10.8)
[2020-05-31 07:21] LABS: Alanine Aminotransferase 64 U/L (0-40); Albumin Level 3.9 g/dL (3.5-5.0); Alkaline Phosphatase 85 U/L (39-117); Anion Gap 16 (12-20); Aspartate Amino Transferase 138 U/L (5-37); Bilirubin Total 1.1 mg/dL (0.0-1.0); Blood Urea Nitrogen 9 mg/dL (9-16); Calcium 8.4 mg/dL (8.4-10.2); Carbon Dioxide 27 mmol/L (22-29); Chloride 98 mmol/L (96-108); Creatinine Clr Calc Pharmacy 116.5; Estimated Glomerular Filt Rate > 60; Glucose Random 96 mg/dL (60-115); Magnesium 1.7 mg/dL (1.6-2.6); Potassium 3.1 mmol/L (3.3-5.1); Sodium 138 mmol/L (135-145); Total Protein 6.2 g/dL (6.5-8.0)
[2020-05-31 07:26] LABS: Platelet Count 67 X10*3/uL (160-400)
[2020-05-31 08:20] LABS: HBsAGNum1 0.19 S/CO (0.00-0.99); Hepatitis B Surface Antigen Negative (Negative)
[2020-05-31 08:23] LABS: HBS Num1 0.13 mIU/mL (0-7.99); HBc Num1 0.14 S/CO (0.00-0.79); Hepatitis B Core Antibody Nonreactive (Nonreactive); ~HepC Num1 0.12 S/CO (0.00-0.79); ~Hepatitis B Surface Antibody NONREACTIVE (Nonreactive); ~Hepatitis C Antibody Nonreactive (Nonreactive)
[2020-05-31] MEDS: 0.9 % Sodium Chloride Flush 3 ML SYRINGE IVFLUSH ×3 (09:13→21:31)
[2020-05-31] MEDS: Naltrexone HCl 50 MG TABLET PO (09:14)
[2020-05-31] MEDS: PHENobarbitaL 15 MG TABLET 45 MG PO ×2 (09:15→21:30)
[2020-05-31] MEDS: lisinopriL 5 MG TABLET PO (09:15)
--- NOTE | 2020-05-31 13:38 | MHC.CM.PN ---
Patient continues on phenobarbital for ETOH seizure's. Pending EEG scheduled for today. Might discharge home if EEG negative. Discharge home no services. Family will provide transport. CM will continue to follow for discharge needs.
--- NOTE | 2020-05-31 17:24 | HO.PM.IMPN ---
Subjective Subjective Date of Service: 05/31/20 Interval History: Seen in f/u for alcohol withdrawal seizure Physical Exam Vital Signs: Vital Signs: Last Vital Signs Temp 98.7 F 05/31/20 15:51 Pulse 96 05/31/20 15:51 Resp 18 05/31/20 15:51 BP 135/74 05/31/20 15:51 Pulse Ox 99 05/31/20 15:51 Body Mass Index 28.8 Gen: in no acute distress HEENT: sclera anicteric, moist mucus membranes Neck: supple Lungs: clear to auscultation bilaterally Heart: regular rate and rhythm, no murmurs Abd: soft, non-tender, non-distended, no HSM, no stigmata of cirrhosis Ext: no edema Skin: warm/well-perfused Neuro: alert and oriented x3, no focal findings, no asterixis, scalp hematoma Psych: appropriate affect Objective Data Current Medications Generic Name Dose Route Start Last Admin Trade Name Freq PRN Reason Stop Dose Admin Lisinopril 5 mg 05/31/20 09:00 05/31/20 09:15 Lisinopril 5 Mg Tablet PO 5 mg DAILY YEIMI Administration Protocol Medication 1 each 05/29/20 14:45 No Benzodiazepines MISCELLANE DAILY YEIMI Naltrexone HCl 50 mg 05/30/20 09:00 05/31/20 09:14 Naltrexone Hcl 50 Mg Tablet PO 50 mg DAILY YEIMI Administration Naproxen 500 mg 05/29/20 17:59 Naproxen 500 Mg Tablet PO BID PRN pain Phenobarbital 45 mg 05/30/20 09:00 05/31/20 09:15 Phenobarbital 15 Mg Tablet PO 05/31/20 21:01 45 mg BID YEIMI Administration Protocol Phenobarbital 30 mg 06/01/20 09:00 Phenobarbital 30 Mg Tablet PO 06/02/20 21:01 BID YEIMI Protocol Phenobarbital 30 mg 06/03/20 09:00 Phenobarbital 30 Mg Tablet PO 06/04/20 09:01 DAILY YEIMI Protocol Sodium Chloride 3 ml 05/30/20 00:00 05/31/20 09:13 0.9 % Sodium Chloride Flush 3 Ml Syringe IVFLUSH 3 ml QSHIFT YEIMI Administration Zolpidem Tartrate 5 mg 05/29/20 17:59 Zolpidem Tartrate 5 Mg Tablet PO BEDTIME PRN Insomnia Labs CBC & Chem 7: 05/31/20 05:17 05/31/20 05:17 Assessment and Plan (1) Alcohol withdrawal seizure: Problem details: h/o alcohol abuse with zero level on adm . Probable alcohol withdrawl sz. R/o causes of syncope and other causes of Sz Status: Acute (2) Alcohol use disorder: Status: Acute (3) HTN (hypertension): Status: Acute Assessment and Plan: hospital d#3 59yo M with hx EtOH dependency, HTN admitted for seizure likely due to EtOH withdrawal # EtOH withdrawal sz - Neuro consulted, EEG tomorrow, sz precautions - phenobarbital taper, folic acid, thiamine - CARE team consult - continue naltrexone # EtOH hepatitis - no signs of cirrhosis, MDF low, no steroids or pentoxyfilline indicated # thrombocytopenia # anemia - likely due to marrow suppression by EtOH, monitor CBC # scalp hematoma - no intracrnial hemorrhage # elevated ferritin - to consider outpt workup for hemochromatosis # HTN - lisinopril # VTE ppx - SCDs
[2020-06-01] VITALS (8 sets, daily range): BP systolic 130–156; BP diastolic 63–89; PULSE 83–93; RESP 14–20; TEMP 36.9–37.2; O2SAT 97–99
--- NOTE | 2020-06-01 | EEG_ITS ---
The waking background activity consists of low voltage fast frequencies seen diffusely, intermixed with low voltage posterior 10 hertz alpha frequency and muscle artifacts anteriorly. Photic stimulation is without activation. Hyperventilation was omitted. No sleep stages are identified. No focal, lateralizing, or paroxysmal discharges seen. IMPRESSION: This waking EEG is within normal limits. MD CHRISTIE Jaramillo/ZELDA / [id number]
[2020-06-01] MEDS: lisinopriL 5 MG TABLET PO (07:18)
[2020-06-01] MEDS: Naltrexone HCl 50 MG TABLET PO (07:19)
[2020-06-01] MEDS: PHENobarbitaL 30 MG TABLET PO ×2 (07:19→22:08)
[2020-06-01] MEDS: 0.9 % Sodium Chloride Flush 3 ML SYRINGE IVFLUSH ×3 (07:20→22:08)
[2020-06-01] MEDS: Potassium Chloride Packet 20 MEQ PACKET 40 MEQ PO (09:51)
--- NOTE | 2020-06-01 10:18 | PC.NURSE ---
to EEG at this time with transport
[2020-06-01 12:36] LABS: Potassium 3.8 mmol/L (3.3-5.1)
--- NOTE | 2020-06-01 16:21 | P.CONCA_ITS ---
History of Present Illness History of Present Illness Date of Service: 06/01/20 Requesting physician: Nicholas Pena Chief complaint: Syncope Narrative: Pleasant 59-year-old gentleman with syncope. He has background of alcohol use which she has is saying that he drinks 1-2 glasses of vodka once a week or so. He said he was out shopping when he felt odd and blinking lights in front of his eyes. He said initially this sensation went away but later came back and he fell to the ground. He said he did not pass out. He has yet to stay down for approximately 5 minutes and then someone helped him and EMS was called. After that he was brought to the hospital. He has been ruled out. He has no chest discomfort shortness of breath. He has been seen by Neurology and then we were asked to comment about his syncope. He is physically active and denies any exertional symptoms. [facility] Past Medical History Medical History Alcohol use disorder Alcohol use disorder No known health problems Social History Social History Household Members: Spouse Housing: House Do you presently have visiting nurse or other home services: No Alcohol intake: current Alcohol intake frequency: a few times a week Alcohol type: hard liquor Smoking Status: Never smoker Use of substances other than those prescribed or required for medical reasons: No Currently Displaying Signs/Symptoms of Drug Intoxication Withdrawal: No Have you been hit, kicked, punched, or otherwise hurt by someone within the past year? If so, by whom?: No Do you feel safe in your current relationship?: No Is there a partner from a previous relationship who is making you feel unsafe now?: No Are you made to feel afraid or neglected: No Advance Directives: No Advance Directives Information Provided: Yes Advance Directives on File: Yes Advance Directives Date on File: 05/29/20 Do you have thoughts of harming others: None Do you have a plan to hurt others: No Plan Recently lost weight without trying: Unsure service: No Current occupational status: disabled Meds Allergies Allergy/AdvReac Type Severity Reaction Status Date / Time No Known Allergies Allergy Verified 05/29/20 11:49 [No Known Allergies*] Active Medications: Current Medications Generic Name Dose Route Start Last Admin Trade Name Freq PRN Reason Stop Dose Admin Lisinopril 5 mg 05/31/20 09:00 06/01/20 07:18 Lisinopril 5 Mg Tablet PO 5 mg DAILY [facility] Administration Protocol Medication 1 each 05/29/20 14:45 No Benzodiazepines MISCELLANE DAILY [facility] Naltrexone HCl 50 mg 05/30/20 09:00 06/01/20 07:19 Naltrexone Hcl 50 Mg Tablet PO 50 mg DAILY YEIMI Administration Naproxen 500 mg 05/29/20 17:59 Naproxen 500 Mg Tablet PO BID PRN pain Phenobarbital 30 mg 06/01/20 09:00 06/01/20 07:19 Phenobarbital 30 Mg Tablet PO 06/02/20 21:01 30 mg BID [facility] Administration Protocol Phenobarbital 30 mg 06/03/20 09:00 Phenobarbital 30 Mg Tablet PO 06/04/20 09:01 DAILY [facility] Protocol Sodium Chloride 3 ml 05/30/20 00:00 06/01/20 16:01 0.9 % Sodium Chloride Flush 3 Ml Syringe IVFLUSH 3 ml QSHIFT [facility] Administration Zolpidem Tartrate 5 mg 05/29/20 17:59 Zolpidem Tartrate 5 Mg Tablet PO BEDTIME PRN Insomnia Home Medications Medication Instructions Recorded Confirmed Last Taken Type clonidine HCl 1 tab PO BID 05/29/20 05/29/20 Unknown History lisinopril 1 tab PO DAILY 05/29/20 05/29/20 Unknown History Physical Exam Vital Signs: Vital Signs: Last Vital Signs Temp 98.8 F 06/01/20 15:31 Pulse 92 06/01/20 15:31 Resp 16 06/01/20 15:31 BP 132/64 06/01/20 15:31 Pulse Ox 97 06/01/20 15:31 Body Mass Index 28.8 GENERAL APPEARANCE: in no acute distress, well developed, well nourished. HEENT: unremarkable. HEAD: normocephalic, atraumatic. NECK/THYROID: no carotid bruit, no jugular venous distention. SKIN: no suspicious lesions, warm and dry. HEART: no murmurs, regular rate and rhythm, S1, S2 normal. LUNGS: clear to auscultation bilaterally. ABDOMEN: normal, bowel sounds present, soft, nontender, nondistended. EXTREMITIES: no clubbing, cyanosis, or edema. PERIPHERAL PULSES: equal. NEUROLOGIC: nonfocal, alert and oriented. PSYCH: mood/affect full range. Results Labs and Meds Result diagrams: 05/31/20 05:17 06/01/20 11:55 Lab results: Laboratory Results - last 24 hr 06/01/20 11:55 Potassium 3.8 D Assessment and Plan (1) HTN (hypertension): Status: Acute (2) Syncope: Status: Acute Pleasant 5 year gentleman who presented with syncope. No chest discomfort shortness of breath. EKG is not showing any ischemic changes. Continue to monitor on telemetry. Check orthostatics. Check echocardiogram to assess for any wall motion abnormality or cardiomyopathy. He has no murmurs on exam. Thank you for allowing me to participate in the care of your patient. Please feel free to contact me if you have any questions.
--- NOTE | 2020-06-01 18:40 | HO.PM.IMPN ---
Subjective Subjective Date of Service: 06/01/20 Interval History: ? syncope Review of Systems As per patient initially patient drinks excessively but patient denies drink excessive alcohol. Denies any chest pain or shortness of breath or abdominal pain or fever chills. Physical Exam Vital Signs: Vital Signs: Last Vital Signs Temp 98.8 F 06/01/20 15:31 Pulse 92 06/01/20 15:31 Resp 16 06/01/20 15:31 BP 132/64 06/01/20 15:31 Pulse Ox 97 06/01/20 15:31 Body Mass Index 28.8 Physical exam: Constitutional: Not in acute distress. Cvs: [id number], [id number] , no murmur res: clear to auscultation ,no rhonchii or wheezing abd: no rebound or guarding ,nt, bs present. ext pulses present , no cyanosis neuro: axo3 , nonfocal. Objective Data Current Medications Generic Name Dose Route Start Last Admin Trade Name Freq PRN Reason Stop Dose Admin Lisinopril 5 mg 05/31/20 09:00 06/01/20 07:18 Lisinopril 5 Mg Tablet PO 5 mg DAILY [facility]IMI Administration Protocol Medication 1 each 05/29/20 14:45 No Benzodiazepines MISCELLANE DAILY [facility] Naltrexone HCl 50 mg 05/30/20 09:00 06/01/20 07:19 Naltrexone Hcl 50 Mg Tablet PO 50 mg DAILY [facility] Administration Naproxen 500 mg 05/29/20 17:59 Naproxen 500 Mg Tablet PO BID PRN pain Phenobarbital 30 mg 06/01/20 09:00 06/01/20 07:19 Phenobarbital 30 Mg Tablet PO 06/02/20 21:01 30 mg BID YEIMI Administration Protocol Phenobarbital 30 mg 06/03/20 09:00 Phenobarbital 30 Mg Tablet PO 06/04/20 09:01 DAILY [facility] Protocol Sodium Chloride 3 ml 05/30/20 00:00 06/01/20 16:01 0.9 % Sodium Chloride Flush 3 Ml Syringe IVFLUSH 3 ml QSHIFT YEIIM Administration Zolpidem Tartrate 5 mg 05/29/20 17:59 Zolpidem Tartrate 5 Mg Tablet PO BEDTIME PRN Insomnia Labs CBC & Chem 7: 05/31/20 05:17 06/01/20 11:55 Assessment and Plan (1) HTN (hypertension): Status: Acute Assessment and Plan: hospital d#3 59yo M with hx EtOH dependency, HTN admitted for seizure likely due to EtOH withdrawal 1. EtOH withdrawal sz - Neuro consulted, EEG seems fine, sz precautions, phenobarbital taper, folic acid, thiamine,CARE team consult, naltrexone. ? syncope : echo added. cardio eval 2. EtOH hepatitis- no signs of cirrhosis, MDF low, no steroids or pentoxyfilline indicated 3. thrombocytopenia/anemia:stable 60's stable , no active bleeding. - likely due to marrow suppression by EtOH, monitor CBC 4. scalp hematoma- no intracrnial hemorrhage 5. elevated ferritin noted to be tthought - to consider outpt workup for hemochromatosis 6.HTN- continue lisinopril # VTE ppx - SCDs (2) Alcohol withdrawal seizure: Problem details: h/o alcohol abuse with zero level on adm . Probable alcohol withdrawl sz. R/o causes of syncope and other causes of Sz Status: Acute (3) Alcohol use disorder: Status: Acute
[2020-06-02] VITALS (10 sets, daily range): BP systolic 109–173; BP diastolic 61–91; PULSE 76–108; RESP 14–18; TEMP 36.6–37.1; O2SAT 96–99
[2020-06-02 06:43] LABS: Hematocrit 35.3 % (42-52); Hemoglobin 11.8 g/dl (14.0-18.0)
[2020-06-02 07:15] LABS: Anion Gap 17 (12-20); Blood Urea Nitrogen 13 mg/dL (9-16); Carbon Dioxide 28 mmol/L (22-29); Chloride 97 mmol/L (96-108); Creatinine Clr Calc Pharmacy 118.1; Estimated Glomerular Filt Rate > 60; Glucose Random 127 mg/dL (60-115); Potassium 3.5 mmol/L (3.3-5.1); Sodium 138 mmol/L (135-145)
[2020-06-02] MEDS: lisinopriL 5 MG TABLET PO (09:53)
[2020-06-02] MEDS: 0.9 % Sodium Chloride Flush 3 ML SYRINGE IVFLUSH ×2 (09:53→17:08)
[2020-06-02] MEDS: PHENobarbitaL 30 MG TABLET PO (09:54)
[2020-06-02] MEDS: Naltrexone HCl 50 MG TABLET PO (09:54)
--- NOTE | 2020-06-02 13:00 | CA_ITS ---
Transthoracic Echocardiogram Patient (Last, First, Middle): Saleem Rudd, Gender: Male Date of : 1960 Age: 59 Procedure Date: 06/02/2020 Procedure Type: Transthoracic Echocardiogram Location: [facility] [place] Height: 172.72 cm Weight: 86.18 kg BSA: 2.00 m2 Heart Rate: bpm BP: 173 / 91 mmHg Supervisor Forming And Tempering: Referring MD: Nicholas Pena MD Symptoms: syncope Study Quality: Fair ECG Rhythm: Sinus Conclusions: - Normal left ventricular size and systolic function. - Normal right ventricular cavity size and systolic function. Findings Procedure Information Contrast agent, definity, is being given per protocol without apparent complications. Left Ventricle Normal left ventricular size and systolic function. There is mildly increased left ventricular wall thickness. The visually estimated ejection fraction is between 55-60%. There is no evidence of regional wall motion abnormalities. Diastolic function is normal for age. Right Ventricle Normal right ventricular cavity size and systolic function. Atria Both atria are normal in size. Aortic Valve The aortic valve structure and function is likely normal. There is no aortic valve stenosis. There is no aortic valve regurgitation. Mitral Valve The mitral valve appears normal. There is moderate mitral annular calcification. There is no mitral valve regurgitation. There is no mitral valve stenosis. Pulmonic Valve The pulmonic valve is likely normal. Tricuspid Valve Normal tricuspid valve structure and function. There is trace tricuspid valve regurgitation. Normal right atrial pressure. There is no evidence of pulmonary hypertension. Great Vessels There is mild dilatation of the ascending aorta. The visualized portions of the pulmonary artery and branches are normal. Venous The inferior vena cava is normal in size and collapses greater than 50% with inspiration. Pericardium/Pleural There is no evidence of pericardial effusion. Prior Study Comparison No prior study available for comparison. Measurements 2D Linear Measurements IVSd: 1.23 0.6-0.9/0.6-1.0 cm LVIDd: 4.04 3.9-5.3/4.2-5.9 cm LVIDd Index: 2.02 2.4-3.2/2.2-3.1 cm/m2 LVIDs: 2.56 2.0-3.6 cm LVPWd: 1.28 0.7-1.1 cm Ao Root: 3.30 2.1-3.5 cm LA Diam: 3.20 2.7-3.8/3.0-4.0 cm LAIDs Index: 1.60 1.5-2.3 cm/m2 LV Mass: 223.67 67-162/88-224 g LV Mass Index: 111.84 43-95/49-115 g/m2 LVOT Diam: 2.20 3.0+(-)1.3 cm Mitral Valve MV Pk E: 0.44 MV PK A: 1.05 MV Decel Time: 127.00 E/A: 0.40 E'Lateral: 5.32 E'Medial: 6.00 E/E' Med: 7.40 E/E' Lat: 8.30 PHT: 37.00 MVA PHT: 5.95 Decel [place]: 3.48 Aortic Valve AoV Pk Yakov: 1.13 AoV Mn Yakov: 0.78 AoV VTI: 0.20 AoV Pk Grad: 5.00 Aov Mn Grad: 3.00 ELISE Cont.VTI: 2.33 LVOT LVOT Pk Yakov: 0.72 LVOT Mn Yakov: 0.53 LVOT VTI: 0.12 LVOT Pk Grad: 2.00 LVOT Mn Grad: 1.00 LVOT Diam: 2.20 LVOT Area: 3.80 Diastolic Function MV Pk E: 0.44 MV Pk A: 1.05 E/A: 0.40 E'Medial: 6.00 E/E' Med: 7.40 E' Laterial: 5.32 E/E' Lat: 8.30 Tricuspid Valve TR Pk Yakov: 1.74 TR Pk Grad: 12.00 RA Press: 3.00 RVSP: 15.00 Great Vessels Aorta Ao Root-2D: 3.30 2.0-3.7 cm Ao Asc: 3.50 2.1-3.4 cm Pulmonary Valve PV Pk Yakov: 0.68 Peak PV Grad: 2.00 Updated in Other Vendor System with Status of Final Bennett Duff MD electronically signed on 06/02/2020 4:18:51 PM with status of Final
--- NOTE | 2020-06-02 13:15 | MHC.RECOVRN ---
59 year old male presented to [facility] ED via ambulance on 05/29 due to EXPERIENCED SEIZURE AT STORE, POSTICTAL UPON EMS ARRIVAL, ALTERED, COMBATIVE. ALERT, ORIENTED, TREMULOUS, FIDGETY AT THIS TIME. LAST ETOH 2 DAYS AGO per hydrography teacher. T/w met with pt in 485 to discuss substance use after consult was placed to the CARE Team. Pt reported to t/w that last alcohol use was 2 weeks ago while watching soccer. Pt reports current alcohol use as 2 drinks per week and sometimes nothing for 2 weeks. Pt reports that decrease in alcohol use began 4+ months ago. Prior to 4 months ago, pt reports alcohol?use daily since age 19.? Currently, pt is prescribed naltrexone through the [facility], pt states It really helps and has been instrumental in decreasing alcohol use. 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 Pt states I want it so I'll do it. T/w discussed and provided information to pt regarding other outpatient supports, pt not interested at this time.? Pt was very pleasant during conversation and hopeful regarding his recovery. Pt was given t/w card if pt would like to reach out at any time for additional support. Case was discussed with pts RN.
--- NOTE | 2020-06-02 16:39 | P.DS_ITS ---
DS: Providers Provider Date of Service: 06/02/20 Date of admission: 05/29/20 16:09 Date of discharge: 06/02/20 Primary care physician: Michi Dumont MD Consults: 05/29/20 17:59 Consult to Neurology Routine Consulting Provider: [facility] Reason for consultation: New seizure 06/01/20 14:13 Consult to Cardiology Routine Consulting Provider: Bennett Duff Reason for consultation: Syncope? Has provider been notified: No 06/01/20 18:42 Consult to Care Team Routine Comment: Reason for consultation: etoh abuse DS: Diagnosis Discharge Diagnosis (1) HTN (hypertension): Status: Acute (2) Syncope: Status: Acute DS: Medications Discharge Medications Home Medications: Home Medications Medication Instructions Recorded Confirmed clonidine HCl 1 tab PO BID 05/29/20 05/29/20 lisinopril 1 tab PO DAILY 05/29/20 05/29/20 Previous Rx's Medication Instructions Recorded naproxen 500 mg PO BID PRN #14 tab 12/24/19 oxycodone-acetaminophen [Percocet] 1 tab PO Q6H PRN #14 tab 12/24/19 naltrexone 50 mg tablet 50 mg PO DAILY 30 Days #30 tab 04/26/20 DS: Summary Hospital Course Hospital Course: 59-year-old male with hypertension on lisinopril and clonidine, alcohol dependency he has been on naltrexone, chronic back pain, and 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 He was at a store today and was found outside of the store with what appeared to be a seizure and there was brought by the EMS to the emergency room initially he was said to be very agitated confused with postictal state and there was given Ativan and seemed to have a senior given significantly improved and is back to his normal sensorium. He admits that he drinks alcohol although he is not very specific on the amount that he drinks on a daily basis his last drank about 2 or 3 days ago. He does have some more mild tremors and is a little anxious particularly about stain in the hospital tonight. CT head shows scalp hematoma, LFTS are high, and has anemia and thrombocytopenia. Hospital Course problem sims section.: Patient came with alcohol withdrawal and started on phenobarb protocol speech is improved. There was also question of syncope echo seems fine as per Cardiology and further workup will be arranged outpatient as per Cardiology. Patient was told that follow-up with his PCP -avoid driving until cleared by his PCP. Patient has thrombocytopenia , platelets are stable around 60, monitor CBC with PCP in 1 week and further management as per PCP. Time Spent with Patient Time attestation: Total time spent providing and/or coordinating discharge services: Discharge coordination time: Greater than 30 minutes Physical Exam Vital Signs: Vital Signs: Last Vital Signs Temp 98.8 F 06/02/20 15:36 Pulse 100 06/02/20 15:41 Resp 18 06/02/20 15:36 BP 109/61 06/02/20 15:41 Pulse Ox 99 06/02/20 15:36 Body Mass Index 28.8 Physical exam: Constitutional: Not in acute distress Cvs: [id number], [id number] , no murmur res: clear to auscultation ,no rhonchii or wheezing abd: no rebound or guarding ,nt, bs present. ext pulses present , no cyanosis neuro: axo3 , nonfocal. DS: Data Data Completed and Pending Labs on day of discharge: Laboratory Results - last 24 hr 06/02/20 06/02/20 05:27 05:27 Hgb 11.8 L Hct 35.3 L Sodium 138 Potassium 3.5 Chloride 97 Carbon Dioxide 28 Anion Gap 17 BUN 13 Creatinine 0.71 Estim Creat Clear Calc 118.1 Estimated GFR > 60 Random Glucose 127 H Calcium 9.0 D Discharge Plan Discharge Patient Disposition: Home, Self-Care Referrals: Michi Dumont MD [Primary Care Provider] - Brian Agarwal MD [Physician] - (fu in 2 weeks ) Bennett Duff MD [Physician] - (fu in 2 week) Discharge Medications: Continued clonidine HCl 0.1 mg tablet 1 tab PO BID RF: 0 lisinopril 5 mg tablet 1 tab PO DAILY RF: 0 oxycodone-acetaminophen [Percocet] 5-325 mg tablet 1 tab PO Q6H PRN (Reason: pain) Qty: 14 RF: 0 naproxen 500 mg tablet 500 mg PO BID PRN (Reason: pain) Qty: 14 RF: 0 naltrexone 50 mg tablet 50 mg PO DAILY 30 Days Qty: 30 RF: 0 Discharge Orders: Discharge Order (Routine); Ordered 06/02/20 Ordered By: Nicholas Pena Diet: advance to usual diet Activity on Discharge: As tolerated Stand Alone Forms: Patient Portal Discharge page Other Ambulatory Orders: Complete Blood Count no Diff (Routine) Timeframe: 1 Week Facility: [facility] - Location: Laboratory Ordered By: Nicholas Pena Care Plan Goals: Patient came with alcohol withdrawal and started on phenobarb protocol speech is improved. There was also question of syncope echo seems fine as per Cardiology and further workup will be arranged outpatient as per Cardiology. Patient was told that follow-up with his PCP -avoid driving until cleared by his PCP. Patient has thrombocytopenia , platelets are stable around 60, monitor CBC with PCP in 1 week and further management as per PCP. Discussed with Neurology patient needs to avoid driving for 6 months and follow- up with Neurology before started driving Health Concerns: As above. Plan of Treatment: As above. Discharge Date/Time: 06/02/20 17:41
--- NOTE | 2020-06-03 08:50 | MHC.CM.PN ---
Patient was discharged yesterday after CM had left for the day. Discharge home no services, son will provide transport.
== END 2020-06-02 17:41 | disposition home or self-care (01) | DRG 280 ==
LOC: HO.ED 15:31 → HO.EDOVER 16:29 → HO.IMC 19:56
PROVIDERS: Family Medicine; Admitting Provider Internal Medicine; Emergency Provider Emergency Medicine; PCP Internal Medicine; Visit Provider Internal Medicine
DX: K70.10 Alcoholic hepatitis without ascites (principal); D69.6 Thrombocytopenia, unspecified; R56.9 Unspecified convulsions; D64.9 Anemia, unspecified; F10.239 Alcohol dependence with withdrawal, unspecified; I10 Essential (primary) hypertension; S00.03XA Contusion of scalp, initial encounter; G89.29 Other chronic pain; W18.30XA Fall on same level, unspecified, initial encounter; Y93.9 Activity, unspecified; Y92.410 Unspecified street and highway as the place of occurrence of the external cause; Y99.9 Unspecified external cause status; Z20.822 Contact with and (suspected) exposure to COVID-19; Z79.899 Other long term (current) drug therapy
CPT/HCPCS: 36415; 70450; 76700; 80048; 80053; 80320; 82728; 83540; 83735; 84132; 85014; 85018; 85025; 85610; 86704; 86706; 86803; 87340; 87635; 93005; 93306; 95816; 96372; 96374; 96375; 99285; 99291; J2060; J2560; Q9957

== ENCOUNTER 2020-06-04 15:45 | Outpatient (REF) | payer BC, SELFPAY ==
[2020-06-04 17:55] LABS: MANUAL DIFF FLAG NO
[2020-06-04 18:03] LABS: Basophils Absolute Auto 0.1 X10*3/uL (0.0-0.2); Eosinophils Absolute Auto 0.1 X10*3/uL (0.0-0.4); Eosinophils Percent Auto 2.1 % (0-4); Hematocrit 36.1 % (42-52); Imm Gran Abs Auto 0.02 X10*3/uL (0.00-0.03); Imm Gran Pct Auto 0.4 % (0.0-0.4); Lymphocytes Absolute Auto 1.4 X10*3/uL (1.2-4.9); Lymphocytes Percent Auto 26.8 % (20-40); Mean Corpuscular HGB Conc 33.2 g/dl (31.0-36.0); Mean Corpuscular Hemoglobin 33.5 pg (27.0-33.0); Mean Corpuscular Volume 100.8 fL (80-98); Mean Platelet Volume 10.1 fL (9.4-12.4); Monocytes Absolute Auto 0.9 X10*3/uL (0.1-1.2); Monocytes Percent Auto 16.6 % (2-11); Neutrophils Absolute Auto 2.8 X10*3/uL (2.0-8.3); Neutrophils Percent Auto 53.1 % (45-73); Platelet Count 228 X10*3/uL (160-400); Red Blood Count 3.58 X10*6/uL (4.60-5.80); Red Cell Distribution Width 12.3 % (11.0-16.0); White Blood Count 5.2 X10*3/uL (4.8-10.8)
[2020-06-04 18:13] LABS: Prothrombin Time 12.4 SEC (10.8-13.0)
== END 2020-06-04 15:46 | disposition home or self-care (01) ==
LOC: HO.MANLDS 15:45
PROVIDERS: PCP Internal Medicine; Visit Provider Physician Assistant
DX: D69.6 Thrombocytopenia, unspecified (principal)
CPT/HCPCS: 36415; 85025; 85610

== ENCOUNTER → 2020-06-07 11:04 | Outpatient (BNVA) | payer BC, SELFPAY | PROVIDERS: PCP Internal Medicine; Visit Provider Internal Medicine Cardiovascular Disease ==

== ENCOUNTER → 2020-06-15 12:58 | Outpatient (BNVA) | payer BC, SELFPAY | PROVIDERS: PCP Internal Medicine; Visit Provider Internal Medicine ==

== ENCOUNTER → 2020-07-15 11:08 | Outpatient (REF) | payer BC, SELFPAY ==
--- NOTE | 2020-07-15 11:10 | HM_ITS ---
TEST PERFORMED: Cardiac event monitoring. INDICATION: Syncope and collapse. ENROLLMENT PERIOD: 07/15/2020 to 08/14/2020 - 30 days. FINDINGS: In the above monitoring period, the underlying rhythm was sinus. Rates ranged from 91 beats per minute to 98 beats per minute. There was one instance noted as passed out but during that time, rhythm was sinus at 98/min. Otherwise, there were no arrhythmias of concern noted during this time or any other symptoms. CONCLUSION: Study shows sinus rhythm only without any arrhythmias of concern. Ananth Borges MD HS/ZELDA / [id number] MTDD
== END ==
LOC: HO.CARD 11:08
PROVIDERS: Visit Provider Internal Medicine Cardiovascular Disease
DX: R55 Syncope and collapse (principal)
CPT/HCPCS: 93270

== ENCOUNTER → 2020-08-20 09:53 | Outpatient (BNVA) | payer BC, SELFPAY | PROVIDERS: PCP Internal Medicine; Visit Provider Internal Medicine ==

== ENCOUNTER → 2020-10-11 15:06 | Outpatient (BNVA) | payer BC, SELFPAY | PROVIDERS: PCP Internal Medicine; Visit Provider Nurse Practitioner Family ==

== ENCOUNTER → 2020-11-23 10:46 | Outpatient (BNVA) | payer BC, SELFPAY | PROVIDERS: Visit Provider Internal Medicine ==

== ENCOUNTER → 2021-02-23 10:24 | Outpatient (BNVA) | payer OTHER, SELFPAY | PROVIDERS: Visit Provider Internal Medicine ==

== ENCOUNTER 2023-01-08 11:53 | Outpatient (REF) | payer OTHER, SELFPAY ==
[2023-01-08 13:21] LABS: MANUAL DIFF FLAG NO
[2023-01-08 13:27] LABS: Basophils Percent Auto 0.7 % (0-2); Eosinophils Percent Auto 0.5 % (0-4); Hematocrit 39.1 % (42.0-52.0); Hemoglobin 13.5 g/dl (14.0-18.0); Imm Gran Abs Auto 0.02 X10*3/uL (0.00-0.03); Imm Gran Pct Auto 0.3 % (0.0-0.4); Lymphocytes Absolute Auto 2.3 X10*3/uL (1.2-4.9); Lymphocytes Percent Auto 37.9 % (20-40); Mean Corpuscular HGB Conc 34.5 g/dl (31.0-36.0); Mean Corpuscular Hemoglobin 32.8 pg (27.0-33.0); Mean Corpuscular Volume 94.9 fL (80.0-98.0); Mean Platelet Volume 9.6 fL (9.4-12.4); Monocytes Absolute Auto 0.5 X10*3/uL (0.1-1.2); Monocytes Percent Auto 7.4 % (2-11); Neutrophils Absolute Auto 3.3 x10*3/uL (2.0-8.3); Neutrophils Percent Auto 53.2 % (45-73); Platelet Count 109 X10*3/uL (160-400); Red Blood Count 4.12 X10*6/uL (4.60-5.80); Red Cell Distribution Width 12.4 % (11.0-16.0); White Blood Count 6.1 X10*3/uL (4.8-10.8)
[2023-01-08 14:17] LABS: INTERNATIONAL NORM RATIO 0.9 (0.9-1.1); Prothrombin Time 11.3 SEC (11.1-13.3)
[2023-01-08 14:29] LABS: Alanine Aminotransferase 64 U/L (0-40); Albumin Level 4.5 g/dL (3.5-5.0); Alkaline Phosphatase 89 U/L (39-117); Amylase 57 U/L (28-100); Anion Gap 20 (12-20); Aspartate Amino Transferase 116 U/L (5-37); Bilirubin Total 0.7 mg/dL (0.0-1.0); Blood Urea Nitrogen 9 mg/dL (9-16); Calcium 9.2 mg/dL (8.4-10.2); Carbon Dioxide 25 mmol/L (22-29); Chloride 99 mmol/L (96-108); Estimated Glomerular Filt Rate > 60; Gamma Glutamyl Transpeptidase 471 U/L (11-51); Glucose Random 145 mg/dL (60-115); Magnesium 1.3 mg/dL (1.6-2.6); Potassium 3.5 mmol/L (3.3-5.1); Sodium 140 mmol/L (135-145); Total Protein 7.7 g/dL (6.5-8.0)
[2023-01-08 14:43] LABS: Folate 7.7 ng/mL (> or = 4.0); Vitamin B12 706 pg/mL (200-900)
[2023-01-09 07:53] LABS: Lipase 71 U/L (8-78)
[2023-01-11 17:43] LABS: Vitamin B1 9 nmol/L (8-30)
== END 2023-01-08 11:54 | disposition home or self-care (01) ==
LOC: HO.MANLDS 11:53
PROVIDERS: Visit Provider Physician Assistant
DX: F10.21 Alcohol dependence, in remission (principal)
CPT/HCPCS: 36415; 80053; 82150; 82607; 82746; 82977; 83690; 83735; 84425; 85025; 85610

== ENCOUNTER 2023-08-17 15:33 | Outpatient (AMB) | payer OTHER, SELFPAY ==
[2023-08-22 10:08] VITALS: BP 148/84; PULSE 94; O2SAT 95
--- NOTE | 2023-08-22 10:08 | A.OFFVISCC_ITS ---
Vital Signs 08/22/23 10:08 BP 148/84 H Blood Pressure Location Rt brachial Pulse 94 Pulse Source Pulse Oximeter Pulse Oximetry (%) 95 Oxygen Delivery Method Room Air Intake Visit Reasons: Intake Allergies No Known Allergies [No Known Allergies*] Allergy (Verified 02/23/21 10:31) HPI HPI Intake: Details: Patient presents for intake Referral from PCP Very guarded in visit, difficult to engage, his doing most of the talking for him They both report the PCP who referred them (Kalani Tobin), had informed them the hospital could detox him, that he would come in daily for an hour or two and receive fluids T/w informed them the hospital does not offer a service like this, and that people who are detoxed at the hospital are those admitted for alcohol withdrawal He is uninterested in trialing DEVON, states he has taken naltrexone in the past and does not find it helpful for cravings He is drinking 2-4 drinks / day mixed drinks with vodka Per his he was in recovery for nearly a year until he had surgery approx 2 months ago. He stopped taking his naltrexone and resumed alcohol use shortly after He has previously gone to [facility] in the past- uninterested at this time in inpatient detox HPI Comments Details: Patient presents for MAT visit [facility] Medical History Alcohol abuse Alcohol use disorder Alcohol use disorder No known health problems Surgical History History of back surgery Hx of appendectomy Family History Mother Alzheimers disease Father Alzheimers disease Social History Household Members: Spouse Housing: House Do you presently have visiting nurse or other home services: No Alcohol intake: current Alcohol intake frequency: a few times a week Alcohol type: hard liquor Patient Tobacco Use Status: Former Tobacco user Years Smoked: 20 +/- Advance Directives Date on File: 05/29/20 service: No Current occupational status: disabled Review of Systems Const Reports as per HPI Physical Exam Const General: cooperative and no acute distress Resp Effort & Inspection: normal respiratory effort and able to speak in complete sentences Psych Appearance: grossly normal Mental Status: mental status grossly normal Speech and movement: Normal speech and movement present Affect: Hostile affect present and Irritable affect present Attitude: Guarded attititude/behavior present, Avoids eye contact (attititude/behavior) and Refuses to answer (attititude/behavior) Thought process: Normal thought process present Assessment & Plan Assessment & Plan (1) Alcohol use disorder, severe, dependence: Code(s): F10.20 - Alcohol dependence, uncomplicated Category: Medical Plan: -Obtain [facility] to speak with primary care -Encouraged patient to follow up in 1 week -Discussed harm reduction -Reviewed with him to not stop drinking suddenly, but that he will need to taper. Provided written handout education for withdrawal timeline and symptoms Orders: Orders Complete Blood Count Auto Diff 08/17/23 F10.20 - Alcohol dependence, uncomplicated Comprehensive Met. Panel 08/17/23 F10.20 - Alcohol dependence, uncomplicated
== END 2023-08-17 16:30 | disposition home or self-care (01) ==
PROVIDERS: Visit Provider Nurse Practitioner Family
DX: F10.20 Alcohol dependence, uncomplicated (principal)
CPT/HCPCS: 99204

== ENCOUNTER → 2023-08-17 15:33 | Outpatient (BNVA) | payer OTHER, SELFPAY | PROVIDERS: Visit Provider Nurse Practitioner Family ==

== ENCOUNTER 2024-06-06 09:46 | Outpatient (REF) | payer OTHER, SELFPAY ==
--- OUTSIDE RECORDS SUMMARY | 2024-06-06 10:57 | XMS_ITS | Data Portability ---
Author Organization [facility] Home Service Address [address] [place] [address] Assessment No assessment recorded. Plan of Treatment Reminders Order Date Submit Date Provider Last Modified By Organization Details Last Modified Time Details Appointments None recorded. Lab vitamin B12 + folate, serum or blood 2024 025 [facility], [address] [place] [address], [address], 5 15:57:18 CMP, serum or plasma 2024 025 [facility], [address] [place] [address], [address], 5 15:57:18 gamma-glut amyl transferas e (ggt), serum 2024 025 [facility], [address] [place] [address], [address], 5 15:57:18 magnesium, serum or plasma 2024 025 [facility], [address] [place] [address], 79[address], 5 15:57:18 vitamin B1 (thiamine) , serum 2024 025 [facility], [address] [place] [address], [address], 5 15:57:18 hemoglobin A1c, QN, blood 2024 025 [facility], [address] [place] [address], [address], 5 15:58:02 PT/INR 2024 025 [facility], [address] [place] [address], [address], 5 15:58:44 PSA, serum or plasma 2024 025 [facility], [address] [place] [address], [address], 5 15:58:02 CBC w/ auto diff 2024 025 [facility], [address] [place] [address], [address], 5 15:57:18 CMP, serum or plasma 2023 024 [facility], [address] [place] [address], [address], 4 16:16:29 gamma-glut amyl transferas e (ggt), serum 2023 024 [facility], [address] [place] [address], [address], 4 16:16:29 magnesium, serum or plasma 2023 024 [facility], [address] [place] [address], [address], 4 16:16:29 vitamin B1 (thiamine) , serum 2023 024 [facility], [address] [place] [address], 12[address], 4 16:16:29 vitamin B12 + folate, serum or blood 2023 024 [facility], [address] [place] [address], [address], 4 16:16:29 PT/INR 2023 024 [facility], [address] [place], [address], 4 16:16:29 PT/PTT, plasma 2023 024 [facility], [address] [place] [address], [address], 4 16:16:29 magnesium, serum or plasma 2022 023 [facility] (Outpatient), [address] [place], [address], 3 14:13:00 CMP, serum or plasma 2022 023 [facility] (Outpatient), [address] [place], [address], 3 18:24:35 phosphorus , serum or plasma 2022 023 [facility] (Outpatient), [address] [place], [address], 3 14:12:59 vitamin B12 + folate, serum or blood 2022 023 [facility] (Outpatient), [address] [place], [address], 3 14:13:00 vitamin B1 (thiamine) , blood 2022 023 [facility] (Outpatient), [address] [place], [address], 4 11:43:35 CMP, serum or plasma 2022 023 [facility], [address] [place] [address], [address], 3 14:39:49 vitamin B12 + folate, serum or blood 2022 023 [facility], [address] [place] [address], [address], 3 14:39:49 magnesium, serum or plasma 2022 023 [facility], [address] [place] [address], [address], 3 14:39:49 vitamin B1 (thiamine) , blood 2022 023 [facility], [address] [place] [address], [address], 3 14:39:49 PT/INR 2022 023 [facility], [address] [place] [address], [address], 3 14:39:49 amylase + lipase, serum 2022 023 [facility], [address] [place] [address], [address], 3 14:39:49 Referral gastroente rologist referral 2024 025 [facility], [address] [place], [address], 5 09:16:25 dermatolog ist referral 2022 023 [facility], [address], [place], [address], 3 08:10:56 Procedures None recorded. Surgeries None recorded. Imaging US, echocardio gram 2024 025 [facility], [address] [place] [address], [address], 5 08:28:42 US, liver 2024 025 [facility], [address] [place] [address], [address], 5 08:28:42 US, upper back 2024 025 [facility], [address] [place] [address], [address], 5 08:28:42 electromyo gram + nerve conduction study - left hand numbness, mostly pinky and left big toe and second toe numbness 2022 023 yaa Herrera MD, [address] [place] [address], [address], 4 13:54:25 CT, brain, w/o contrast 2022 023 hrubner Not available 3 11:26:26 Medication Orders naltrexone 50 mg tablet 2023 025 MENDEZ Not available 5 15:54:10 clonidine HCl 0.2 mg tablet 2023 024 rtryba Not available 5 15:53:39 naltrexone 50 mg tablet 2022 023 [email or web address] Not available 5 15:53:52 clonidine HCl 0.2 mg tablet 2022 023 rtryba Not available 5 15:54:08 Seroquel 50 mg tablet 2022 023 [email or web address] Not available 5 15:53:55 Patient TargetsNo targets recorded. Patient InstructionsNo instructions recorded. Reason for Referral Ext[employer] Process Referral for S ebaceous cyst of skin cyst on the back on the neck Referring Physician: Kalani Banks, Internal Medicine, Encounter Date: 12/05/2022 [employer] Referral for Screening for malignant neoplasm of colon needs colonoscopy Referring Physician: Kalani Banks, Internal Medicine, Encounter Date: 05/20/2024 Results Created Date Observation Date Name Description Value Unit Range Abnormal Flag Note LastModifiedBy Organization Detail LastModifiedTime 04/13/19 24 04/13/2023 CT, brain , w/o contr ast No observ ation record ed. [email or web address] [facility] [address], [place], [address], 04/13/2023 13:24:34 04/19/19 24 04/18/2023 elect romyo gram + nerve condu ction study No observ ation record ed. [facility] [address] [facility] [address], [place], [address], 04/24/2023 11:01:24 Result Notes None recorded. Problems Name Problem SNOMED Code Status Onset Date Resolution Date Notes Provider Name and Address Organization Details Recorded Time Gastritis 9426336 Active 2017 Laura jeffries [facility] 8 13:59:43 Hiatal hernia 39141995 Active 2017 Laura jeffries [facility] 8 13:59:49 Gastroeso phageal reflux disease 746219539 Active 2017 Laura jeffries [facility] 8 13:59:54 Venous varices 405377633 Active 2017 Laura jeffries [facility] 8 14:00:18 Alcoholis m 0076955 Active 2017 ADRIENNE Acuna [address] [place] [address], [address], [facility] 8 09:51:29 Essential hypertens ion 47788206 Active 2017 ADRIENNE Acuna [address] [place] [address], [address], [facility] 8 09:51:36 Vitamin D deficienc y 68516406 Active 2018 [facility] MARIA G Acuna[address], [address], [facility] 9 09:06:43 Steatosis of liver 853142662 Active 2018 Elizabeth MARIA G Acuna[address], [address], [facility] 9 09:06:53 Impacted cerumen in right ear 602609980805 9103 Active 2021 JONES VALDES [address] [place] [address], [address], [facility] 2 09:59:20 Anxiety 65640827 Active 2021 JONES VALDES [address] [place] [address], [address], [facility] 2 14:21:18 Thrombocy topenic disorder 734120447 Active 2022 JONES VALDES [address] [place] [address], [address], [facility] 3 13:40:14 Seizure 49782635 Active 2022 JONES VALDES [address] [place] [address], [address], [facility] 3 13:40:17 Sebaceous cyst of skin 188337259 Active 2022 JONES VALDES [address] [place] [address], [address], [facility] 3 14:45:03 Hypomagne semia 491931604 Active 2022 JONES VALDES [address] [place] [address], [address], [facility] 3 14:38:05 Paresthes ia of upper limb 40142481 Active 2022 JONES VALDES [address] [place] [address], [address], [facility] 3 14:07:13 Seizure disorder 070171668 Active 2022 JONES VALDES [address] [place] [address], [address], [facility] 3 14:12:01 Bilateral carpal tunnel syndrome 521370677542 17009 Active 2023 JONES VALDES [address] [place] [address], [address], [facility] 4 11:16:10 Alcohol withdrawa l 299287611 Active 2023 JONES VALDES [address] [place] [address], [address], [facility] 4 14:13:00 Alcohol abuse 66885646 Active 2023 JONES VALDES [address] [place] [address], [address], [facility] 4 16:07:53 Palpitati ons 46735661 Active 2024 JONES VALDES [address] [place] [address], [address], [facility] 5 15:58:02 Lipoma of back 774400043 Active 2024 JONES VALDES [address] [place] [address], [address], [facility] 5 16:01:19 Problem Notes None recorded. Procedures Surgical History Date Name Laterality Status Provider Name and Address Organization Details Recorded Time 2 Cerumen Removal completed JONES VALDES [address] [place] [address], [address], [facility] 06/10/2021 09:59:14 9 Cerumen Removal completed June ADRIENNE Acuna [address] [place] [address], [address], [facility] 03/27/2018 09:16:46 Imaging Results Imaging Date Name Status LastModified by Organization Details LastModified Time 04/13/2023 CT, brain, w/o contrast completed [email or web address] [place] [address] Diagnostic Imaging [address], [place], [address], 04/13/2023 13:24:34 04/18/2023 electromyogram + nerve conduction study completed [facility] [address] [facility] [address], [place], [address], 04/24/2023 11:01:24 Procedure Notes None recorded. Medical Equipment None Reported. Allergies No known drug allergies Medications Name Sig Start Date Stop Date Status Note LastModified by Organization Details LastModified Time clonidine HCl 0.1 mg tablet Take 1 tablet twice a day by oral route for 30 days. 05/21 completed Not Available Not Available Not Available prednisone 10 mg tablet TAKE 5 TABLET BY MOUTH FOR 3 DAYS THEN 1 LESS TABLET EVERY 3 DAYS UNTIL FINISHED 03/16 completed Not Available Not Available Not Available propranolol 80 mg tablet Take 1 tablet twice a day by oral route for 90 days. 05/21 completed Not Available Not Available Not Available hydrocodone 5 mg-acetamin ophen 325 mg tablet TAKE 1 TO 2 TABLETS BY MOUTH EVERY 6 HOURS NEEDED FOR MODERATE PAIN. NOT TO EXCEED 8 TABLETS DAILY 05/21 completed Not Available Not Available Not Available naltrexone 50 mg tablet TAKE 1 TABLET BY MOUTH EVERY DAY 05/20 completed Not Available Not Available Not Available tramadol 50 mg tablet TAKE 1 TABLET BY MOUTH EVERY 6 HOURS FOR 5 DAYS NEEDED 07/15 completed Not Available Not Available Not Available lidocaine-p rilocaine 2.5 %-2.5 % topical cream 08/26 completed Not Available Not Available Not Available oxycodone-a cetaminophe n 5 mg-325 mg tablet Given in ER 03/09 completed Not Available Not Available Not Available clonidine HCl 0.2 mg tablet TAKE 1 TABLET BY MOUTH TWICE DAILY 2024 active Not Available Not Available Not Avai lable propranolol 40 mg tablet take 1 tablet by mouth twice a day 05/22 completed Not Available Not Available Not Available magnesium oxide 400 mg (241.3 mg magnesium) tablet TAKE 1 TABLET BY MOUTH THREE TIMES DAILY 07/15 completed Not Available Not Available Not Available chlordiazep oxide 25 mg capsule Take 1 capsule twice a day by oral route for 7 days. 07/15 completed Not Available Not Available Not Available fluoxetine 10 mg capsule TAKE 1 CAPSULE BY MOUTH EVERY DAY 05/26 completed Not Available Not Available Not Available lisinopril 5 mg tablet TAKE 1 TABLET BY MOUTH EVERY DAY active Not Available Not Available No t Available Vitamin D2 1,250 mcg (50,000 unit) capsule Take 1 capsule every week by oral route for 84 days. 08/26 completed Not Available Not Available Not Available doxycycline hyclate 100 mg tablet TAKE 1 TABLET BY MOUTH TWICE DAILY FOR 7 DAYS 05/20 completed Not Available Not Available Not Available naproxen 500 mg tablet 12/30 completed Not Available Not Available Not Available Vivitrol 380 mg intramuscul ar suspension, extended release 12/30 completed Not Available Not Available Not Available quetiapine 50 mg tablet TAKE 1 TABLET BY MOUTH EVERY DAY 05/20 completed Not Available Not Available Not Available cholecalcif stephanie (vitamin D3) 1,250 mcg (50,000 unit) capsule TAKE 1 CAPSULE BY MOUTH EVERY WEEK 08/26 completed Not Available Not Available Not Available oxycodone 10 mg tablet TAKE 1 TABLET BY MOUTH FOUR TIMES DAILY FOR 7 DAYS NEEDED 03/16 completed Not Available Not Available Not Available Vitals Date Recorded Body height Body mass index (BMI) Body weight Heart rate Oxygen saturation Oxygen saturation in Arterial blood by Pulse oximetry Systolic blood pressure Diastolic blood pressure Provider Name and Address Organization Details Last Updated DateTime 3 175.26 cm 29.5 kg/m2 56890.4 7 g 102 /min 97 % 97 % 164 mm[Hg] 82 mm[Hg] [facility] 3 14:24:25 Date Recorded Body height Body mass index (BMI) Body weight Heart rate Systolic blood pressure Diastolic blood pressure Provider Name and Address Organization Details Last Updated DateTime 3 175.26 cm 29.4 kg/m2 41084.8 8 g 97 /min 140 mm[Hg] 78 mm[Hg] Valeria Fuentesmond [facility] 3 14:29:09 Date Recorded Body height Body mass index (BMI) Body weight Heart rate Oxygen saturation Oxygen saturation in Arterial blood by Pulse oximetry Systolic blood pressure Diastolic blood pressure Provider Name and Address Organization Details Last Updated DateTime 4 175.26 cm 28 kg/m2 36365.4 7 g 131 /min 97 % 97 % 154 mm[Hg] 92 mm[Hg] Leah Ward [facility] 4 15:54:41 Date Recorded Body height Body mass index (BMI) Body weight Heart rate Oxygen saturation Oxygen saturation in Arterial blood by Pulse oximetry Systolic blood pressure Diastolic blood pressure Provider Name and Address Organization Details Last Updated DateTime 5 175.26 cm 28.1 kg/m2 25364.5 5 g 110 /min 98 % 98 % 160 mm[Hg] 98 mm[Hg] Yariel Gray [facility] 5 15:40:01 Social History Question Answer Notes LastModified by Organizat ion Details LastModified Time Tobacco Smoking Status Never Smoker Not Available [email or web address] 01/06/2020 03:36:23 What Was The Date Of Your Most Recent Tobacco Screening? 05/20/2024 [email or web address] Information not available 05/20/2024 Do You Or Have You Ever Used Any Other Forms Of Tobacco Or Nicotine? No Information not available 01/05/2023 Sex: Unknown Functional Status None recorded. Mental Status None recorded. Family History Nothing Reported. Medical History No medical history recorded. Past Encounters Encounter ID Performer Location Encounter Start Date Encounter Closed Date Diagnosis/Indication Diagnosis SNOMED-CT Code Diagnosis ICD10 Code Diagnosis Note [id number] June Armand MARIA GTUYET [facility] [address] [facility],[place] [address] 01/30/2018 09:34:06 01/30/2018 10:53:50 Essential hypertension 01037496 I10 not well controlled , but pt is declining any changes to his BP med regimen because once again he feels that his numbers are normal despite my informing him the contrary. we will recheck this again soon Alcoholism 7318746 F10.2 0 it is my impression that the pt isn't seeking help at this time for alcohol treatment he declined meds, detox, or rehab. he feels that therapy is enough even though he admits it hasn't been particular ly successful . his on a separate occasion has reported a picture that his intake is much higher than he is admitting to today. Gastroesop hageal reflux disease 800134906 K21.9 denies any sx of ongoing gerd Paresthesia 58293410 R20 .2 - of b/l lower extremity - ?2/2 etoh - he was advised that his pain may be related to his alcohol use. he was counselled that alcohol in excess is damaging to nerve endings. - he also has a pain pattern consistent with claudicati on so we will consult vascular for evaluation of arterial pressure/b lood flow [id number] [facility] [address] [facility], [place] [address] 02/13/2018 11:18:33 02/13/2018 13:30:20 Liver function tests outside reference range 300002036 R94.5 advised that his liver tests are abnormal likely due to etoh we will get an us of the liver have advised him to remain sober to alleviate liver damage Vitamin D deficiency 347 00036 E55.9 Essential hypertension 31456825 I10 still mildly elevated but, bp ok at home Paresthesia 42582381 R20 .2 interested to see if these sx improve with vitamin d replenishm ent as he was severely low will continue with prior recommenda tions as well [id number] [facility] [address] [facility],[place] itsmita [address] [facility] [place] [address] 03/27/2018 08:51:25 03/27/2018 09:42:05 Essential hypertension 91657196 I10 still elevated now even at home will increase med from 40 bid to 80 bid Alcoholism 4883306 F10.2 0 States he's cut back on etoh as stated below it is my impression that the pt isn't seeking help at this time for alcohol treatment he declined meds, detox, or rehab. he feels that therapy is enough even though he admits it hasn't been particular ly successful . his on a separate occasion has reported a picture that his intake is much higher than he is admitting to today. Gastroesop hageal reflux disease 669776941 K21.9 denies any sx of ongoing gerd Vitamin D deficiency 347 99289 E55.9 will recheck in a few more weeks still has about 5 weeks of vitamin d supplement s Steatosis of liver 1007 K76.0 he states he has cut back drinking about 80% he states he drinks 2 in a day and sometimes not at all we also discussed healthy diet and exercise to improve this Impacted cerumen 5809621 6 H61.23 irrigation done today- successful Acute rhinosinusitis 431 990670 J00 sx appear to be improving, benign exam today, likely viral will treat conservati vely and f/u if needed Decreased hearing 458131 001 H91.93 better after irrigation [id number] Kamini Adhikari NP, S [facility] [address] [facility], [place] [address] 05/22/2018 14:49:33 05/22/2018 16:35:50 Steatosis of liver 736090828 K76.0 Vitamin D deficiency 347 97786 E55.9 depending labs OTC dose vs continued high dose replacemen t Essential hypertension 57291974 I10 improved Hyperglycemia 74809890 R 73.9 Intermitte nt claudication 32177741 I73.9 left > right. Has appt next week June ADRIENNE Acuna [facility] [address] [facility], [place] [address] 01/07/2019 09:20:13 01/07/2019 09:50:52 Alcohol abuse 47560820 F10.10 says that he is cutting back, hoping to stop altogether denies depression or depressive sx will consider restarting therapy if his work schedule lightens up Anemia 320682674 D64.9 Vitamin D deficiency 347 70211 E55.9 has been taking supplement [id number] JONES VALDES [facility] [address] [facility], [place] [address] 08/27/2019 15:57:35 08/27/2019 16:38:52 Alcohol abuse 25086347 F10.10 send referral to rehab place f/u after US and labs come in to discuss findings if there are any findings [id number] JONES VALDES [facility] [address] [facility],[place] [address] 12/31/2019 14:20:21 12/31/2019 15:01:33 Lumbago with sciatica 346291081 M54.41 will discuss with about MRI and product test specialist for eval of his chronic back pain and recurring sciatica Essential hypertension 33945473 I10 BP elevated today will monitor at next appt [id number] JONES VALDES [facility] [address] [facility],[place] [address] 03/09/2020 10:18:49 03/09/2020 12:11:19 Lumbago with sciatica 205593122 M54.41 Essential hypertension 39557833 I10 BP elevated today will monitor at next appt [id number] JONES VALDES [facility] [address] [facility],[place] [address] 03/16/2020 08:08:23 03/16/2020 11:59:35 Alcoholism 5654624 F10.20 stable on medication , sees specialist for this and has not been drinking Lumbago with sciatica 20 3984579 M54.41 will follow up after MRI for better approach to treatment plan also waiting on PVSS for eval as well the patient will be provided with a note to keep him out of work for the foreseeabl e future until condition better assessed [id number] JONES VALDES [facility] [address] [facility],[place] [address] 04/07/2020 14:47:12 04/07/2020 16:25:18 Essential hypertension 20344142 I10 BP with fine today at office visit no interventi on needed today will not interfere with surgery Pre-surger y evaluation 943474485 Z01.818 after review of patient history and physical exam, the patient is found to be mild to moderate risk for moderate to high risk procedure discussed potential complicati ons for the surgery including infection, bleeding, etc. that the patient may encounter and should be aware of after the surgery the patient understand s this as we have discussed it patient at this time has been cleared for surgery by my office [id number] JONES VALDES [facility] [address] [facility] [address],[place] [address] 05/21/2020 16:01:27 05/21/2020 16:29:56 Low back pain 814257667 M54.5 will fu with labs Alcohol dependence 81677 003 F10.20 discussed fu with his specialist and restart on naltrexone , as tramadol and all nacrotics have been stopped Depressive disorder 3548 9007 F32.9 discussed medication s [id number] JONES VALDES [facility] [address] [facility] [address],[place] [address] 06/04/2020 14:52:31 06/04/2020 16:25:27 Thrombocytopenic disorder 634754966 D69.6 will recheck labs per hospital Seizure 55123805 R56.9 most likely due acute withdrawal Alcohol withdrawal 01934 0000 F10.939 the patient is much improved from hospital stable, not currently drinking per patient and [id number] JONES VALDES [facility] [address] [facility] [address],[place] [address] 05/27/2021 11:11:26 05/27/2021 16:50:30 Essential hypertension 30469232 I10 stable with recheck Alcoholism 8395596 F10.2 1 stable Impacted cerumen 8136066 6 H61.23 scheduled for lavage [id number] [facility] [address] [facility],[place] [address] 06/10/2021 09:31:45 06/14/2021 08:50:54 Impacted cerumen in right ear [id number] H61.21 resolved [id number] [facility] [address] [facility],[place] [address] 10/24/2021 15:23:07 10/24/2021 15:49:30 Active or passive immunization [id number] Z23 advised Adult heal th examination 170200202 Z00.00 BP is good todayBW recently excellent [id number] JON[facility] [address] [facility],[place] [address] 01/17/2022 14:04:49 01/18/2022 08:55:09 Alcoholism 0802671 F10.21 started drinking againwill start on medication to help with his anxiety and hopefully decrease his desire for the alcohol Anxiety 12021688 F41.1 will start on prozac for the patient to help with the anxiety to hopefully mitigate the drinking [id number] JONES VALDES [facility] [address] [facility] [address] 05/26/2022 13:19:46 05/26/2022 16:12:45 Alcoholism 2280197 F10.21 started drinking againwill start on medication to help with his anxiety and hopefully decrease his desire for the alcohol Thrombocyt openic disorder 341649233 D69.59 will recheck labs per hospital Seizure 46385103 Z46.89 most likely due acute withdrawal Anxiety 32505889 F41.1 will start on prozac for the patient to help with the anxiety to hopefully mitigate the drinking Essential hypertension 41379436 I10 stable with recheck Screening for malignant neoplasm of prostate 330692981 Z12.5 agreed to screening [id number] JONES VALDES [facility] [address] [place] [address], [place] [address] 12/05/2022 14:19:04 12/05/2022 15:38:17 Alcoholism 7569133 F10.21 started drinking againwill start on medication to help with his anxiety and hopefully decrease his desire for the alcohol Anxiety 52436944 F41.1 will start on prozac for the patient to help with the anxiety to hopefully mitigate the drinking Essential hypertension 79620848 I10 starting clonidine Thrombocyt openic disorder 814256372 D69.59 stable Seizure 63009570 Z46.89 stable Sebaceous cyst of skin 383146990 L72.3 [place] [id number] JONES VALDES [facility] [address] [facility] [address] 01/05/2023 14:15:30 01/05/2023 14:52:36 Thrombocytopenic disorder 946015764 D69.3 stable Seizure 31688873 Z46.89 stable Alcoholism 3203246 F10.2 1 started drinking againwill start on medication to help with his anxiety and hopefully decrease his desire for the alcohol [id number] JONES VALDES [facility] [address] [facility] [address] 02/28/2023 14:01:44 02/28/2023 14:15:18 Seizure disorder 342778373 R56.9 stable Paresthesi a of upper limb 22800587 R20.2 will set up with EMG Hypomagnesemia 594800285 E83.42 will recheck levels [id number] JONES VALDES [facility] [address] [facility],[place] [address] 07/16/2023 15:44:42 07/17/2023 08:17:13 Depression screening 268352034 Z13.31 discussed mood Alcohol abuse 35328756 F 10.14 discussed options for patientthi nk a partial program will work for him will set him up with medication again as well Alcoholism 1803992 F10.2 1 started drinking againwill start on medication to help with his anxiety and hopefully decrease his desire for the alcohol [id number] JONES VALDES [facility] [address] [facility],[place] [address] 05/20/2024 15:23:57 05/20/2024 16:05:23 Alcohol abuse 61615068 F10.14 will set up with BW recheck and recheck of his liver Essential hypertension 26557752 I10 will set up with lab work Screening for malignant neoplasm of prostate 794093904 Z12.5 agreed to screening Screening for malignant neoplasm of colon 600728425 Z12.11 will set up with screening again Palpitations 45366290 R0 0.2 agreed to US echo to check for any changes given alcohol use d/o Lipoma of back 355689942 D17.1 was much smaller, started growing quickly within the last few mos Health Concerns Section Related Observation LastModified by Organization Detai ls LastModified Time None Recorded Concern Status LastModified by Organization Details LastModified Time None Recorded Advance Directives Directive None Recorded Payers Encounter Date Sequence Insurance Name Policy Number Policy Norris Covered Member ID Norris Member ID Guarantor Name 12/05/2022 1 [facility] [id number] Saleem Rudd [id number] Saleem Rudd 01/05/2023 1 [facility] [id number] Saleem Rudd [id number] [place] 02/28/2023 1 [facility] [id number] Saleem Rudd [id number] Saleem Rudd 07/16/2023 1 [facility] [id number] Saleem Rudd [id number] [place] Rudd 05/20/2024 1 [facility] [id number] Saleem Rudd [id number] Saleem Rudd Notes Date Note Type Note Provider Name and Address Organization Details Recorded Time 3 text/html the patient is having difficulties at work, getting very depressed and anxious about it the patient is drinking 2 to 3 drinks after work vodka usuallythe patient has been drinking like this for a few weeks the patient and I discussed optionsdue to concern about seizure related withdrawal also started on clonidineseroquel for the MDD JONES VALDES [address] [place] [address], [address], [facility] 12/05/2022 14:58:00 3 text/html 2 week f/u the patient reports that he is still drinking most daysnoting now when he doesn't drink he has having shakesoccasionally his fingers of bilateral hands go numb for a bit then come back the patient reports that he didn't use the naltrexone because he was worried about using it and having issues with it when he drinks the patient reports that he will try it now the patient reports he occasionally drinks but one or two drinks without the affects working on getting him away from alcohol JONES VALDES [address] [facility], [place], [address], [facility] 01/05/2023 14:44:27 3 text/html c/o left hand numbness telemed phone callpt consents to phone call the patient is still having numbness in his left handbut he is only having numbness in the pinky, entire pinky left leg, the left foot, the big toe and second toes possibly still related to really low mag levelbut will recheck numbersalso check at CT head and set up for an EMG study, possible carpal tunnel or generalized nerve damage JONES VALDES [address] [place], [address], [facility] 02/28/2023 14:14:44 4 text/html f/u appointment for drinking the patient is here with his wifethe pt notes he was very sick this past weekend, the patient reports thatthe patient looks bloated in the face,the patient having withdrawal symptoms the patient is not jaundicedthe patient has a h/x of alcohol abuse the patient reports thatthe patient was having dry heaving, producing bilenot eating per the patient notes a lot it comes from being bored being out of work due to his recent surgerythe patient is not chocking at night or having issues with breathingthe patient reports that a lot of his drinking comes from depression, makes him feel better the patient reports knows he isn't able to not drink due to his access to itthe patient openly admits he craves it, it makes him feel goodthe patient JONES VALDES [address] [place], [address], [facility] 07/16/2023 16:19:59 5 text/html f/u lab work the patient is here due to concerns from his wifethe patient has a hx of alcohol use, which he has been seen for several times and even done rehab forthe patient claims to be only drinking two drinks a night usually hard liquordenies any symptoms, no chest pain, sob, fever, abdominal pain, skin changes, blood in the urine or stool will order BW to recheck from last year his BP is elevated, pt is nervous today in officerecommended he check it at home for a few days to see what his BP averages around outside of a medical facility the patient will need colonoscopy updatedneeds prostate screening again patient agrees to this planand will fu after we get results back did recommend restarting naltrexone but pt declines at this time JONES VALDES [address] [facility], [place], [address], [facility] 05/20/2024 16:09:42
[2024-06-06 13:36] LABS: MANUAL DIFF FLAG NO
[2024-06-06 13:42] LABS: Basophils Percent Auto 0.6 % (0-2); Eosinophils Absolute Auto 0.1 X10*3/uL (0.0-0.4); Eosinophils Percent Auto 2.2 % (0-4); Hematocrit 38.5 % (42.0-52.0); Hemoglobin 13.4 g/dl (14.0-18.0); Imm Gran Abs Auto 0.01 X10*3/uL (0.00-0.03); Imm Gran Pct Auto 0.2 % (0.0-0.4); Lymphocytes Absolute Auto 1.4 X10*3/uL (1.2-4.9); Lymphocytes Percent Auto 30.6 % (20-40); Mean Corpuscular HGB Conc 34.8 g/dl (31.0-36.0); Mean Corpuscular Hemoglobin 32.4 pg (27.0-33.0); Mean Corpuscular Volume 93.2 fL (80.0-98.0); Mean Platelet Volume 9.9 fL (9.4-12.4); Monocytes Absolute Auto 0.4 X10*3/uL (0.1-1.2); Neutrophils Absolute Auto 2.7 x10*3/uL (2.0-8.3); Neutrophils Percent Auto 58.4 % (45-73); Platelet Count 158 X10*3/uL (160-400); Red Blood Count 4.13 X10*6/uL (4.60-5.80); Red Cell Distribution Width 12.1 % (11.0-16.0); White Blood Count 4.6 X10*3/uL (4.8-10.8)
[2024-06-06 13:46] LABS: INTERNATIONAL NORM RATIO 0.9 (0.9-1.1); Prothrombin Time 10.7 SEC (10.9-12.4)
[2024-06-06 14:05] LABS: Anion Gap 13 (12-20)
[2024-06-06 14:16] LABS: Alanine Aminotransferase 29 U/L (0-40); Albumin Level 4.5 g/dL (3.5-5.0); Alkaline Phosphatase 99 U/L (39-117); Aspartate Amino Transferase 54 U/L (5-37); Blood Urea Nitrogen 14 mg/dL (9-16); Calcium 9.5 mg/dL (8.4-10.2); Carbon Dioxide 24 mmol/L (22-29); Chloride 108 mmol/L (96-108); Estimated Glomerular Filt Rate > 60; Glucose Random 109 mg/dL (60-115); Potassium 3.6 mmol/L (3.3-5.1); Sodium 141 mmol/L (135-145); Total Protein 7.4 g/dL (6.5-8.0)
[2024-06-06 14:18] LABS: Estimated Average Glucose 117 mg/dL; Hemoglobin A1C 138.1025 umol/L; Hemoglobin A1c % 5.7 % (<6.0); Total Hemoglobin (HGBA1C) 3547.8261 umol/L
[2024-06-06 14:20] LABS: Magnesium 1.4 mg/dL (1.6-2.6)
[2024-06-06 14:46] LABS: Prostate Specific Antigen 4.73 ng/mL (<0.05-4.0)
[2024-06-06 14:59] LABS: Folate 10.8 ng/mL (> or = 4.0); Vitamin B12 507 pg/mL (200-900)
[2024-06-06 15:04] LABS: Gamma Glutamyl Transpeptidase 188 U/L (11-51)
== END 2024-06-06 09:47 | disposition home or self-care (01) ==
LOC: HO.MANLDS 09:46
PROVIDERS: Visit Provider Physician Assistant
DX: Z12.5 Encounter for screening for malignant neoplasm of prostate (principal); Z13.1 Encounter for screening for diabetes mellitus; I10 Essential (primary) hypertension; F10.14 Alcohol abuse with alcohol-induced mood disorder
CPT/HCPCS: 36415; 80053; 82607; 82746; 82977; 83036; 83735; 84153; 84425; 85025; 85610

== ENCOUNTER 2025-01-21 10:54 | Outpatient (REF) | payer OTHER, SELFPAY ==
[2025-01-21 13:10] LABS: MANUAL DIFF FLAG NO
[2025-01-21 13:33] LABS: Hematocrit 37.7 % (42.0-52.0); Hemoglobin 12.8 g/dl (14.0-18.0); Imm Gran Abs Auto 0.01 X10*3/uL (0.00-0.03); Imm Gran Pct Auto 0.2 % (0.0-0.4); Lymphocytes Absolute Auto 2.0 X10*3/uL (1.2-4.9); Mean Corpuscular HGB Conc 34.0 g/dl (31.0-36.0); Mean Corpuscular Hemoglobin 29.2 pg (27.0-33.0); Mean Corpuscular Volume 85.9 fL (80.0-98.0); NRBC Abs Auto 0.000 X10*3/uL (0.0-0.012); NRBC Pct Auto 0.0 /100WBC (0.0-0.2); Platelet Count 219 X10*3/uL (160-400); Red Blood Count 4.39 X10*6/uL (4.60-5.80); White Blood Count 5.6 X10*3/uL (4.8-10.8)
[2025-01-21 14:30] LABS: Alanine Aminotransferase 16 U/L (0-40); Albumin Level 4.4 g/dL (3.5-5.0); Alkaline Phosphatase 83 U/L (39-117); Anion Gap 10 (12-20); Aspartate Amino Transferase 22 U/L (5-37); Blood Urea Nitrogen 18 mg/dL (9-16); Calcium 9.3 mg/dL (8.4-10.2); Carbon Dioxide 27 mmol/L (22-29); Chloride 108 mmol/L (96-108); Estimated Glomerular Filt Rate > 60; Iron 74 mcg/dL (45-160); Percent Iron Saturation 29 % (15-50); Potassium 4.2 mmol/L (3.3-5.1); Sodium 141 mmol/L (135-145); Total Iron Binding Capacity 254 mcg/dL (228-428); Total Protein 6.7 g/dL (6.5-8.0); Unsaturated Iron Binding 180 ug/dL
[2025-01-21 14:40] LABS: Folate 14.2 ng/mL (> or = 4.0); Vitamin B12 379 pg/mL (200-900)
[2025-01-21 14:57] LABS: Ferritin 473 ng/mL (20-250)
--- OUTSIDE RECORDS SUMMARY | 2025-01-21 21:32 | XMS_ITS | Encounter Summary ---
Author Organization [facility] Address [address] [place] [address] Phone Care Team Providers Care Vehicle Maintenance Supervisor Name Role Phone Michi Dumont Primary Care Provider [phone] Reason for Referral * Outpatient Procedure - Closed Specialty Diagnoses / Procedures Referred By Paulina heller Referred To Contact Diagnoses Palpitations Procedures Adult Echo TTE Kalani Banks PA [address] [facility] [place] [address] Phone: tel: fax: Referral ID Status Reason Start Date Expiration Date Visits Re quested Visits Authorized [id number] Closed 07/31/2024 07/31/2025 1 1 Encounter Details Date Type Department Care Team (Latest Contact Info) Description 07/31/2024 Transcribe Orders Virtual Department [address] [place] [address] Kalani Banks PA [address] [place] [address] Palpitations (Primary Dx); Alcohol abuse with alcohol-induced mood disorder; Benign lipomatous neoplasm of skin and subcutaneous tissue of trunk Social History Tobacco Use Types Packs/Day Years Used Date Smoking Tobacco: Former Cigarettes 0 04/05/1989 - 04/05/1989 Smokeless Tobacco: Never Alcohol Use Standard Drinks/Week Comments Yes 1 (1 standard drink = 0.6 oz pur e alcohol) Socially Education Answer Date Recorded Are you interested in more education? Not on jing e 06/30/2022 Are you concerned about learning? Not on file 06/30/2022 No 06/30/2022 No 06/30/2022 Digital Access Answer Date Recorded No 07/31/2022 No 07/31/2022 No 07/31/2022 Reliable internet access at home? Not on file 07/31/2022 Device with a working camera? Not on file Sex and Gender Information Value Date Recorded Sex Assigned at Not on file Legal Sex Male 9:48 PM EDT Gender Identity Not on file Sexual Orientation Not on file documented as of this encounter Plan of Treatment Not on file documented as of this encounter Results * TTE COMPREHENSIVE (09/03/2024 11:16 AM EDT) Body Surface Area 2.05 m2 Height 173 cm Weight 91 kg Systolic BP 144 mmHg Diastolic BP 82 mmHg Interventricular Septum Thickness 9 6 - 11 mm Left Ventricle Internal Diameter End Diastole 49 42 - 58 mm Left Ventricle Internal Diameter End Systole 35 <40 mm Left Ventricular Outflow Tract Diameter 24.0 mm LVOT VTI REST 164.0 mm Left Ventricular Outflow Tract Velocity 0.8 m/s Left Ventricular Outflow Tract Gradient at Rest 3 mmHg Left Ventricular Posterior Wall Thickness 9 6 - 11 mm Left Ventricle Ea Lateral Wave Speed 7.7 cm/s Left Ventricle Ea Septal Wave Speed 7.0 cm/s Ejection Fraction 64 50 - 75 Percent Left Atrium Dimension Anterior-Posterior 35 15 - 40 mm Aortic Valve Mean Gradient 3 mmHg Aortic Valve Time Velocity Integral 227.0 mm Aortic Valve Peak Velocity 1.1 m/s Aortic Valve Peak Gradient 5 mmHg Aortic Sinus Diameter 34 <40 mm Inferior Vena Cava Diameter 14 <21 mm Left Ventricle A Wave Speed 81.0 cm/s Left Ventricle E Wave Speed 63.5 cm/s Pulmonary Valve Peak Velocity 0.8 m/s Pulmonary Valve Peak Gradient 3 mmHg Right Ventricle Basal Diameter 32 25 - 41 mm Raw LV EF% 49 % MV E/E' Tissue Velocity Lateral 8.25 Relative Wall Thickness 0.37 0.22 - 0.42 Left Ventricle indexed to BSA 74.6 g/m2 MV E/A ratio 0.8 MV E/e' septal 9.07 Left Ventricle E/e' Average 8.7 Aortic Valve Prosthetic Peak Gradient 5 mmHg Aortic Valve Prosthetic Mean Gradient 3 mmHg Aortic Valve Sinus Index by BSA 17 mm/m2 Aorta Sinus Index by Height 1.97 cm/m Aorta Sinus CSA index by Height 5.25 cm2/m Pulmonic Valve Prosthetic Peak Gradient 3 mmHg MGB CV AV DIMENSIONLESS INDEX (PEAK) - STRESS ECHO DOBUT - REST 0.73 Aortic Sinus Index 17 mm Aortic Valve Sinus Index 1 17 20 - 32 mm Echo E/Ea 9.07 Left Atrial Volume Index 24 16 - 34 mL/m2 Right Ventricle TAPSE 29 >=17 mm Right Ventricle Pulse Doppler S Wave 15.0 >=9.5 cm/s Left Atrial Volume 50 mL Left Atrial Volume Index by Height 29 mL/m Anatomical Region Laterality Modality Heart Ultrasound Narrative 09/04/2024 2:07 PM EDT Images from the original result were not included. Normal LV size and function EF 60 to 65%. Normal diastolic function. Normal RV size and function. No significant valvular heart disease is seen. Left Ventricle The left ventricle is normal in size. There is normal wall thickness. There is normal left ventricular systolic function. The LV ejection fraction is 64% (calculated via biplane measurement). There are no wall motion abnormalities. LV diastolic function appears within normal limits for age. The E/A ratio is 0.8. The e' septal wave velocity is 7.0 cm/s. The e' lateral wave velocity is 7.7 cm/s. The average E/e' ratio is 8.7. Right Ventricle The right ventricle is normal in size. There is normal right ventricular systolic function. TAPSE is 29 mm. RV S' wave is 15.0 cm/s. Left Atrium The left atrium is normal in size. The left atrial volume index by BSA is 24 mL/m2. Right Atrium The right atrium is normal in size. The IVC is normal in size with normal inspiratory collapse. The IVC diameter is 14 mm. Mitral Valve The mitral valve appears normal. There is no mitral stenosis. There is no mitral regurgitation. Tricuspid Valve The tricuspid valve appears normal. There is no tricuspid stenosis. There is trace tricuspid regurgitation. RV systolic pressure could not be estimated due to insufficient TR Doppler envelope. Aortic Valve The aortic valve is tricuspid. There is no aortic stenosis. There is no aortic regurgitation. The visualized portions of the thoracic aorta appear normal in size. Pulmonic Valve The pulmonic valve appears normal. There is no pulmonic stenosis. There is no pulmonic regurgitation. Pericardium The pericardium appears normal. General Findings The image quality was adequate. Technique(s) used in the evaluation: Color flow Doppler and Spectral Doppler. The predominant rhythm during the study was sinus. Comparison Findings There are no prior studies for comparison. IAS/IVS The interatrial septum appears normal. There is no evidence of patent foramen ovale (PFO). Kalani GOLDMAN CV ECHO ORDERABLES Final Re sult * US Upper Back (09/03/2024 8:56 AM EDT) Anatomical Region Laterality Modality Chest Ultrasound 09/06/2024 10:2 7 AM EDT Impressions 09/06/2024 10:30 AM EDT 1.8 cm complex subcutaneous cystic lesion, likely an epidermal inclusion cyst. Narrative 09/06/2024 10:30 AM EDT US UPPER BACK Referring clinician's provided indication for this examination in Epic: Outside Radiology Order; alchol abuse with alcohol induced mood disorder; benign lipomatous neoplasm of skin and subcutaneous tissue of trunk TECHNIQUE: Focused sonographic evaluation of the posterior neck COMPARISON: None FINDINGS: There is a well-circumscribed, complex subcutaneous cystic lesion with posterior acoustic enhancement measuring 1.8 x 0.7 x 1.7 cm. No internal vascularity. Procedure Note Karoline Rodriguez MD - 09/06/2024 UPPER BACK Referring clinician's provided indication for this examination in [facility]:Outside Radiology Order; alchol abuse with alcohol induced mood disorder;benign lipomatous neoplasm of skin and subcutaneous tissue of trunk TECHNIQUE: Focused sonographic evaluation of the posterior neck COMPARISON: None FINDINGS: There is a well-circumscribed, complex subcutaneous cystic lesion withposterior acoustic enhancement measuring 1.8 x 0.7 x 1.7 cm. No internalvascularity. IMPRESSION: 1.8 cm complex subcutaneous cystic lesion, likely an epidermal inclusioncyst. Kalani GOLDMAN IMG US CHEST Final Resul t * US ABDOMEN LIMITED RIGHT UPPER QUADRANT (09/03/2024 8:55 AM EDT) Anatomical Region Laterality Modality Abdomen Ultrasound 09/03/2024 9:51 AM EDT Impressions 09/03/2024 9:56 AM EDT Hepatic steatosis. Narrative 09/03/2024 9:56 AM EDT US ABDOMEN LIMITED RIGHT UPPER QUADRANT Referring clinician's provided indication for this examination in [facility]: Outside Radiology Order; alcohol abuse with alcohol induced mood disorder; benign lipomatous neoplasm of skin and subcutaneous tissue of trunk TECHNIQUE: US Abdominal limited right upper quadrant. COMPARISON: US ABDOMEN LIMITED RIGHT UPPER QUADRANT FINDINGS: Liver: No suspicious focal lesions. Echogenic hepatic parenchyma with some areas of focal fatty sparing. Main portal vein: Patent portal vein with normally directed flow. Gallbladder: No gallstones or gallbladder wall thickening. Market Development Analyst reports a negative sonographic Schmidt sign. Biliary: No intrahepatic or extrahepatic biliary ductal dilation. The common bile duct measures 4 mm. Right Kidney: No stones or hydronephrosis. Procedure Note Clover Martino MD - 09/03/2024 US ABDOMEN LIMITED RIGHT UPPER QUADRANT Referring clinician's provided indication for this examination in [facility]:Outside Radiology Order; alcohol abuse with alcohol induced mood disorder;benign lipomatous neoplasm of skin and subcutaneous tissue of trunk TECHNIQUE: US Abdominal limited right upper quadrant. COMPARISON: US ABDOMEN LIMITED RIGHT UPPER QUADRANT FINDINGS: Liver: No suspicious focal lesions. Echogenic hepatic parenchyma with someareas of focal fatty sparing. Main portal vein: Patent portal vein with normally directed flow. Gallbladder: No gallstones or gallbladder wall thickening. Market Development Analyst reports a negative sonographic Schmidt sign. Biliary: No intrahepatic or extrahepatic biliary ductal dilation. The common bile duct measures 4 mm. Right Kidney: No stones or hydronephrosis. IMPRESSION: Hepatic steatosis. us Kalani GOLDMAN IMG US ABDOMEN Final Resul t documented in this encounter Visit Diagnoses Diagnosis Palpitations- Primary Alcohol abuse with alcohol-induced mood disorder Benign lipomatous neoplasm of skin and subcutaneous tissue of trunk Benign lipomatous neoplasm of skin and subcutaneous tissue of trunk Palpitations Alcohol abuse with alcohol-induced mood disorder documented in this encounter Care Teams Vehicle Maintenance Supervisor Relationship Specialty Start Date End Date YaniMichi garzon [email or web address] PCP - General Internal Medicine 02/15/18 documented as of this encounter Additional Source Comments The information contained in this document represents components of the legal health record. It is not the complete legal health record.[facility]
--- OUTSIDE RECORDS SUMMARY | 2025-01-21 21:32 | XMS_ITS | Encounter Summary ---
Author Organization [facility] Address [address] [facility] [address] [place] [address] Phone Care Team Providers Care Cerner Analyst Name Role Phone Michi Dumont DO Primary Care Provider [phone] Encounter Details Date Type Department Care Team (Late st Contact Info) Description 03/02/2023 Procedure Pass [facility], Ct Scan - [address] [address] Social History Tobacco Use Types Packs/Day Years [...] on file documented as of this encounter Visit Diagnoses Not on filedocumented in this encounter Care Teams Cerner Analyst Relationship Specialty Start Date End Date Michi Dumont DO [phone] (work) [email or web address] PCP - General Internal Medicine 02/15/18 documented as of this encounter Additional Source Comments The information contained in this document represents components of the legal health record. It is not the complete legal health record.[facility]
--- OUTSIDE RECORDS SUMMARY | 2025-01-21 21:32 | XMS_ITS | Encounter Summary ---
Author Organization [facility] Address [address] [place] [address] Phone Care Team Providers Care Paper And Pulp Mill Worker Name Role Phone Michi Dumont DO Primary Care Provider [phone] Encounter Details Date Type Department Care Team (Latest Contact Info) Description 05/21/2024 Transcribe Orders Virtual Department [address] [place] [address] Kalani Banks PA [address] [place] [address] [place] [address] Palpitations (Primary Dx); Alcohol abuse with alcohol-induced [...] documented as of this encounter Visit Diagnoses Diagnosis Palpitations- Primary Alcohol abuse with alcohol-induced mood disorder Benign lipomatous neoplasm of skin and subcutaneous tissue of trunk documented in this encounter Care Teams Paper And Pulp Mill Worker Relationship Specialty Start Date End Date Yaniryann Michi DO Kenia [email or web address] PCP - General Internal Medicine 02/15/18 documented as of this encounter Additional Source Comments The information contained in this document represents components of the legal health record. It is not the complete legal health record.[facility]
--- OUTSIDE RECORDS SUMMARY | 2025-01-21 21:32 | XMS_ITS | Encounter Summary ---
Author Organization [facility] Address [address] [facility] [address] [place] [address] Phone Care Team Providers Care Chief Program Officer Name Role Phone Michi Dumont DO Primary Care Provider [phone] Encounter Details Date Type Department Care Team (Late st Contact Info) Description 07/31/2024 Procedure Pass [facility] [address] [place] [address] Social History Tobacco Use Types Packs/Day Years [...] on filedocumented in this encounter Care Teams Chief Program Officer Relationship Specialty Start Date End Date Michi Dumont DO [email or web address] PCP - General Internal Medicine 02/15/18 documented as of this encounter Additional Source Comments The information contained in this document represents components of the legal health record. It is not the complete legal health record.[facility]
--- OUTSIDE RECORDS SUMMARY | 2025-01-21 21:33 | XMS_ITS | Encounter Summary ---
Author Organization [facility] Address [address] [facility] [address] [place] [address] Phone Care Team Providers Care Magazine Designer Name Role Phone Michi Dumont DO Primary Care Provider [phone] Michi Dumont DO Unavailable Encounter Details Date Type Department Care Team (Latest Contact Info) Description 01/15/2019 Transcribe Orders [facility] [address] [place] [address] Luis Negrete MD [address] [facility] 2 [place] [address] [email or web address] Abnormal LFTs (Primary Dx) Social History Tobacco Use Types Packs/Day Years Used Date Smoking Tobacco: Former Cigarettes 0 04/05/1989 - 04/05/1989 Smokeless Tobacco: Never Alcohol Use Standard Drinks/Week Comments Yes 1 (1 standard drink = 0.6 oz pur e alcohol) Socially Sex and Gender Information Value Date Recorded Sex Assigned at Not on file Legal Sex Male 9:48 PM EDT Gender Identity Not on file Sexual Orientation Not on file documented as of this encounter Plan of Treatment Not on file documented as of this encounter Results * Hepatitis A antibody, IgM (01/15/2019 11:17 AM EST) Hepatitis A Antibody, IgM NON-REACTI VE NON-REACTI VE [facility] Blood 01/15/2019 11:1 7 AM EST 01/15/2019 11:20 AM EST Luis Negrete MD LAB BLOOD BKR ORDERABLES Final R esult Performing Organization Address [facility] Co de Phone Number [address] [address] * Hepatitis A antibody, IgG (01/15/2019 11:17 AM EST) Hepatitis A Antibody, IgG Positive [facility] Comment: (NOTE) Result indicates immunity to hepatitis A infection from either vaccination or past exposure to hepatitis A. False-positive results may be observed in patients with CMV antibodies or heterophilic antibodies. REFERENCE VALUE Unvaccinated: Negative Vaccinated: Positive Blood 01/15/2019 11:1 7 AM EST 01/15/2019 11:21 AM EST us Luis Negrete MD LAB BLOOD ORDERABLES Final Resul t Performing Organization Address [facility] Co de Phone Number [facility] [address] [place] [address] * PT-INR (01/15/2019 11:17 AM EST) PT 11.4 10.2 - 12.9 sec [facility] INR 1.0 0.9 - 1.1 [facility] Comment:Therapeutic range fo r oral Vitamin K antagonists: 2.0-3.5 Blood 01/15/2019 11:1 7 AM EST 01/15/2019 11:20 AM EST us Luis Negrete MD LAB BLOOD BKR ORDERABLES Final R esult Performing Organization Address [facility] Co de Phone Number [address] [address] * (ABNORMAL) Ferritin (01/15/2019 11:17 AM EST) FERRITIN 765(H) 30 - 400 ug/L [facility] Blood 01/15/2019 11:1 7 AM EST 01/15/2019 11:20 AM EST us Luis Negrete MD LAB BLOOD BKR ORDERABLES Final R esult Performing Organization Address [facility] Co de Phone Number [address] [address] * Hepatitis C antibody, qualitative (01/15/2019 11:17 AM EST) HCV NON-REACTIV E NON-REACTI VE [facility] Blood 01/15/2019 11:1 7 AM EST 01/15/2019 11:20 AM EST us Luis Negrete MD LAB BLOOD BKR ORDERABLES Final R esult Performing Organization Address [facility] Co de Phone Number [address] [address] * Hepatitis B surface antibody (01/15/2019 11:17 AM EST) HBV SURFACE ANTIBODY Negative [facility] Comment: Unvaccinated: Negative Vaccinated: Positive Blood 01/15/2019 11:1 7 AM EST 01/15/2019 11:20 AM EST us Luis Negrete MD LAB BLOOD BKR ORDERABLES Final R esult Performing Organization Address City/[facility] Co de Phone Number [address] [address] * Hepatitis B surface antigen (01/15/2019 11:17 AM EST) HBV SURFACE ANTIGEN NON-REACTI VE NON-REACTI VE [facility] Blood 01/15/2019 11:1 7 AM EST 01/15/2019 11:20 AM EST us Luis Negrete MD LAB BLOOD BKR ORDERABLES Final R esult Performing Organization Address City/State/[facility] Co de Phone Number [address] [address] * (ABNORMAL) Comprehensive metabolic panel (01/15/2019 11:17 AM EST) SODIUM 139 133 - 146 mmol/L [facility] POTASSIUM 4.0 3.3 - 5.1 mmol/L [facility] CHLORIDE 100 96 - 108 mmol/L [facility] CO2 27 21 - 35 mmol/L [facility] BUN 16 6 - 19 mg/dL [facility] CREATININE 0.80 0.5 - 1.5 mg/dL [facility] GLUCOSE 103(H) 70 - 99 mg/dL [facility] ALBUMIN 4.6 3.9 - 4.8 g/dL [facility] TOTAL PROTEIN 8.0 6.5 - 8.0 g/dL [facility] CALCIUM 10.6(H) 8.4 - 10.3 mg/dL [facility] ALKALINE PHOSPHATASE 101 39 - 117 U/L [facility] TOTAL BILIRUBIN 0.5 0.0 - 1.2 mg/dL [facility] AST 35 0 - 37 U/L [facility] ALT 32 0 - 40 U/L [facility] GLOBULIN 3.4 1 - 4.8 g/dL [facility] EGFR 98 >59 mL/min/1.7 3m2 [facility] Comment:If patient is black, multiply result by 1.159. Estimated glomerular filtration rate calculated using the CKD-EPI equation. ANION GAP 16 10 - 20 mmol/L [facility] Blood 01/15/2019 11:1 7 AM EST 01/15/2019 11:20 AM EST us Luis Negrete MD LAB BLOOD BKR ORDERABLES Final R esult [address] [address] * Smooth Muscle Antibody (01/15/2019 11:17 AM EST) SMOOTH MUSCLE AB POSITIVE AT 1:40 [facility] Comment: Keven Melgoza M.D., Director Clinical Immunology Laboratory [id number] Normal: Negative at 1:20 Blood 01/15/2019 11:1 7 AM EST 01/15/2019 11:20 AM EST us Luis Negrete MD LAB BLOOD ORDERABLES Final Resul t [facility] [address] [place] [address] * [id number] phenotyping (01/15/2019 11:17 AM EST) ALPHA 1 ANTITRYPSIN 158 100 - 190 mg/dL [facility] A1A PHENOTYPE MM bands [facility] Blood 01/15/2019 11:1 7 AM EST 01/15/2019 11:21 AM EST us Luis Negrete MD LAB BLOOD ORDERABLES Final Resul t [facility] [address] [place] [address] documented in this encounter Visit Diagnoses Diagnosis Abnormal LFTs- Primary documented in this encounter Care Teams Magazine Designer Relationship Specialty Start Date End Date Michi Dumont DO [email or web address] PCP - General Internal Medicine 02/15/18 Michi Dumont DO [address] [place] [address] [email or web address] Insurance Assigned Provider 02/08/20 01/08/21 documented as of this encounter Additional Source Comments The information contained in this document represents components of the legal health record. It is not the complete legal health record.[facility]
--- OUTSIDE RECORDS SUMMARY | 2025-01-21 21:33 | XMS_ITS | Encounter Summary ---
Author Organization [facility] Address [address] [facility] [address] [place] [address] Phone Care Team Providers Care Quality Assurance Supervisor Body Name Role Phone Michi Dumont DO Primary Care Provider [phone] Michi Dumont DO Unavailable Encounter Details Date Type Department Care Team (Latest Contact Info) Description 01/17/2019 Transcribe Orders Virtual Department [address] [place] [address] Luis Negrete MD [address] [place] [phone] [email or web address] Abnormal liver function test (Primary Dx) Social History Tobacco Use Types [...] documented as of this encounter Results * US ABDOMEN LIMITED RIGHT UPPER QUADRANT (01/31/2019 9:27 AM EST) Anatomical Region Laterality Modality Abdomen Ultrasound 01/31/2019 9:40 AM EST Impressions 01/31/2019 9:42 AM EST Chronically echogenic liver but without focal masses or enlargement: Steatosis versus other chronic hepatocellular disease. POS [id number] Narrative 01/31/2019 9:42 AM EST Limited right upper quadrant ultrasound Compare 10/20/2016 There continues to be mild diffuse increased echogenicity throughout the liver, unchanged. No focal hepatic masses or enlargement. No gallstones, gallbladder wall thickening, hyperemia or pericholecystic fluid. No biliary dilatation. CBD 5 mm. Pancreatic head grossly normal but the tail is obscured by gas. No right-sided hydronephrosis. No right upper quadrant ascites. Procedure Note Patricia Conteh MD - 01/31/2019 Limited right upper quadrant ultrasound Compare 10/20/2016 There continues to be mild diffuse increased echogenicity throughout theliver, unchanged. No focal hepatic masses or enlargement. No gallstones, gallbladder wall thickening, hyperemia or pericholecysticfluid. No biliary dilatation. CBD 5 mm. Pancreatic head grossly normal but the tail is obscured by gas. No right-sided hydronephrosis. No right upper quadrant ascites. IMPRESSION: Chronically echogenic liver but without focal masses or enlargement:Steatosis versus other chronic hepatocellular disease. POS [id number] us Luis Negrete MD IMG US ABDOMEN Final Result documented in this encounter Visit Diagnoses Diagnosis Abnormal liver function test- Primary Nonspecific abnormal results of liver function study Abnormal liver function test Nonspecific abnormal results of liver function study documented in this encounter Care Teams Quality Assurance Supervisor Body Relationship Specialty Start Date End Date Michi Dumont DO [email or web address] PCP - General Internal Medicine 02/15/18 Michi Dumont DO [address] [place] [address] [email or web address] Insurance Assigned Provider 02/08/20 01/08/21 documented as of this encounter Additional Source Comments The information contained in this document represents components of the legal health record. It is not the complete legal health record.[facility]
--- OUTSIDE RECORDS SUMMARY | 2025-01-21 21:33 | XMS_ITS | Patient Health Record ---
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) 05/03/2014 Insurance Providers Payer Name Payer Address Payer Phone Subscriber Number Group Number Insured Name Patient Relationship to Insured Coverage Start Date Coverage End Date [facility] [address] [facility] [phone] [id number] IRVING Self - patient is the insured Medical (General) History Medical History History ICD Code HTN Denies [place],DM,CVA,Lung disease,renal dise ase EtOH abuse with associated l iver disease--I met him when he was hospitalized in early April of 2014 for hypertension and abnormal liver tests were found at that time--an ultrasound revealed echogenic liver but no other abnormalities-specifically, there was no splenomegaly and no ascites--a hepatitis A, B and C profile were negative, his saturation was 31% with an iron of 33, but his ferritin was over 2300--his alpha-1 antitrypsin level was normal and autoimmune studies were negative--his AST was 246 and ALT was 193, and total bilirubin of 2.2 and albumin of 3.8. Surgical History Surgery Date(Month/Year) Inguinal hernia surgery
--- OUTSIDE RECORDS SUMMARY | 2025-01-21 21:33 | XMS_ITS | Data Portability ---
Author Organization [facility], Telehealth Patient Home Address [address] [place] [address] Assessment No assessment recorded. Plan of Treatment Reminders Order Date Submit Date Provider Last Modified By Organization Details Last Modified Time Details Appointments FOLLOW UP 15 2024 10:15A JONES DAVIS Not available Not available Not available FOLLOW UP 15 2025 09:30A JONES DAVIS Not available Not available Not available Lab hemoglobi n A1c, QN, blood 2024 025 [facility], [address] [place] [address], [id number], 01/21/2025 10:43:27 CMP, serum or plasma 2024 025 [facility], [address] [place] [address], [id number], 01/21/2025 10:43:26 CBC w/ auto diff 2024 025 [facility], [address] [place] [address], [id number], 01/21/2025 10:43:26 PSA, total + free, serum or plasma 2024 025 [facility], [address] [place] [address], [address], 01/21/2025 10:43:50 vitamin B12 + folate, serum or blood 2024 025 [facility], [address] [place] [address], [address], 01/21/2025 10:43:26 iron + TIBC + ferritin, serum 2024 [facility], [address] [place] [address], 94[address], 01/21/2025 10:43:26 TSH + free T4, serum 2024 [facility], [address] [place] [address], [id number], 01/21/2025 10:43:26 vitamin B1 (thiamine ), blood 2024 [facility], [address] [place] [address], [address], 01/21/2025 10:43:26 C reactive protein, QN, serum or plasma 2024 [facility], [address] [place] [address], 0[address], 01/21/2025 10:43:26 ESR (erythroc yte sedimenta tion rate), blood 2024 025 [facility], [address] [place] [address], [address], 01/21/2025 10:43:26 vitamin B12 + folate, serum or blood 2024 025 [facility], [address] [place] [address], [id number], 05/20/2024 15:57:18 CMP, serum or plasma 2024 025 [facility], [address] [place] [address], [id number], 05/20/2024 15:57:18 gamma-glu tamyl transfera se (ggt), serum 2024 025 [facility], [address] [place] [address], 767[address], 05/20/2024 15:57:18 magnesium , serum or plasma 2024 025 [facility], [address] [place] [address], [address], 05/20/2024 15:57:18 vitamin B1 (thiamine ), serum 2024 025 [facility], [address] [place] [address], [address], 06/16/2024 11:51:45 hemoglobi n A1c, QN, blood 2024 025 [facility], [address] [place] [address], 40[address], 05/20/2024 15:58:02 PT/INR 2024 025 [facility], [address] [place] [address], 6[address], 05/20/2024 15:58:44 PSA, serum or plasma 2024 025 [facility], [address] [place] [address], 601[address], 05/20/2024 15:58:02 CBC w/ auto diff 2024 025 [facility], [address] [place] [address], 095[address], 05/20/2024 15:57:18 CMP, serum or plasma 2023 024 [facility], [address] [place] [address], 113[address], 07/16/2023 16:16:29 gamma-glu tamyl transfera se (ggt), serum 2023 024 [facility], [address] [place] [address], [id number], 07/16/2023 16:16:29 magnesium , serum or plasma 2023 024 [facility], [address] [place] [address], 45[address], 07/16/2023 16:16:29 vitamin B1 (thiamine ), serum 2023 024 [facility], [address] [place] [address], 365[address], 07/16/2023 16:16:29 vitamin B12 + folate, serum or blood 2023 024 [facility], [address] [place] [address], 895[address], 07/16/2023 16:16:29 PT/INR 2023 024 [facility], [address] [place] [address], [place], [address], 07/16/2023 16:16:29 PT/PTT, plasma 2023 024 [facility], [address] [place] [address], [id number], 07/16/2023 16:16:29 Referral gastroent erologist referral 2024 025 [facility], [address] [place], [address], 05/21/2024 09:16:25 Procedures None recorded. Surgeries None recorded. Imaging US, echocardi ogram 2024 025 [facility], [address] [place], [address], 05/23/2024 08:28:42 US, liver 2024 025 [email or web address] [facility], [address] [place] [address], [address], 07/21/2024 13:35:32 US, upper back [email or web address] [facility], [address] [place] [address], [id number], 07/21/2024 13:35:32 Medication Orders Medrol (Ant) 4 mg tablets in a dose pack 2024 025 [id number], [address] [place], [place], [id number], 01/21/2025 10:34:11 benzonata te 200 mg capsule 2024 025 [id number], [address] [place] [address], [id number], 11/12/2024 05:01:19 naltrexon e 50 mg tablet 2023 025 [email or web address] Not available 05/20/2024 15:54:10 clonidine HCl 0.2 mg tablet 2023 024 [email or web address] Not available 11/26/2024 09:54:47 Patient TargetsNo targets recorded. Patient InstructionsNo instructions recorded. 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 [address], [address], 09/03/2024 11:53:41 09/05/19 25 09/03/2024 US, echoc ardio gram No observ ation record ed. [email or web address] [address], [address], 09/08/2024 16:31:16 09/07/19 25 09/03/2024 US, upper back No observ ation record ed. [email or web address] [address], [address], 09/09/2024 15:35:54 Result Notes None recorded. Problems Name Problem SNOMED Code Status Onset Date Resolution Date Notes Provider Name and Address Organization Details Recorded Time Gastritis 2343769 Active 2017 Laura jeffries [facility] 8 13:59:43 Hiatal hernia 64511989 Active 2017 Laura jeffries [facility] 8 13:59:49 Gastroeso phageal reflux disease 877021272 Active 2017 Laura jeffries [facility] 8 13:59:54 Venous varices 958682393 Active 2017 Lauraemili jeffries [facility] 8 14:00:18 Alcoholis m 9057728 Active [address], [address], [facility] 8 09:51:29 Essential hypertens ion 71822907 Active [address], [address], [facility] 8 09:51:36 Vitamin D deficienc y 59751229 Active [address], [address], [facility] 9 09:06:43 Steatotic liver disease 875511793 Active [address], [address], [facility] 9 09:06:53 Impacted cerumen in right ear 319874117399 9103 Active 2021 JONES VALDES [address] [place], [address], [facility] 2 09:59:20 Anxiety 99096763 Active 2021 JONES VALDES [address] [place], [address], [facility] 5 10:12:40 Thrombocy topenic disorder 382241088 Active 2022 JONES VALDES [address] [place] [address], [address], [facility] 3 13:40:14 Seizure 64632310 Active 2022 JONES VALDES [address] [place] [address], [address], [facility] 3 13:40:17 Sebaceous cyst of skin 381460112 Active 2022 JONES VALDES [address] [place], [address], [facility] 3 14:45:03 Hypomagne semia 681771247 Active 2022 JONES VALDES [address] [place] [address], [address], [facility] 3 14:38:05 Paresthes ia of upper limb 20944294 Active 2022 JONES VALDES [address] [place], [address], [facility] 3 14:07:13 Seizure disorder 640225678 Active 2022 JONES VALDES [address] [place], [address], [facility] 3 14:12:01 Bilateral carpal tunnel syndrome 059490453098 30259 Active 2023 JONES VALDES [address] [place] [address], [address], [facility] 4 11:16:10 Alcohol withdrawa l 014274455 Active 2023 JONES VALDES [address] [place] [address], [address], [facility] 4 14:13:00 Harmful pattern of use of alcohol 01136447 Active 2023 JONES VALDES [address] [place] [address], [address], [facility] 4 16:07:53 Palpitati ons 19801695 Active 2024 JONES VALDES [address] [place] [address], [address], [facility] 5 15:58:02 Lipoma of back 211361541 Active 2024 JONES VALDES [address] [place] [address], [address], [facility] 5 16:01:19 Productiv e cough 36850428 Active 2024 JONES VALDES [address] [place] [address], [address], [facility] 5 15:09:59 Alcohol use disorder Active 2024 JNOES VALDES [address] [place] [address], [address], [facility] 5 12:41:29 Bronchiti s 63985231 Active 2024 JONES VALDES [address] [place] [address], [address], [facility] 5 10:12:06 Postural dizziness 900807688 Active 2024 JONES VALDES [address] [place] [address], [address], [facility] 5 10:36:36 Impaired fasting glycemia 811777372 Active 2024 JONES VALDES [address] [place], [address], [facility] 5 10:36:56 Problem Notes None recorded. Procedures Surgical History Date Name Laterality Status Provider Name and Address Organization Details Recorded Time 2 Cerumen Removal completed JONES VALDES [address] [place], [address], [facility] [place] [facility] 06/10/2021 09:59:14 9 Cerumen Removal completed June ADRIENNE Acuna [address] [place], [address], [facility] 03/27/2018 09:16:46 Imaging Results None recorded. Procedure Notes None recorded. Medical Equipment None Reported. Allergies No known drug allergies Medications Name Sig Start Date Stop Date Status Note LastModified by Organization Details LastModified Time clonidine HCl 0.1 mg tablet Take 1 tablet twice a day by oral route for 30 days. 05/21 completed Not Available Not Available Not Available prednison e 10 mg tablet TAKE 5 TABLET BY MOUTH FOR 3 DAYS THEN 1 LESS TABLET EVERY 3 DAYS UNTIL FINISHED 03/16 completed Not Available Not Available Not Available propranol ol 80 mg tablet Take 1 tablet twice a day by oral route for 90 days. 05/21 completed Not Available Not Available Not Available benzonata te 200 mg capsule Take 1 capsule 3 times a day by oral route as directed for 7 days. 11/12 completed Not Available Not Available Not Available hydrocodo ne 5 mg-acetam inophen 325 mg tablet TAKE 1 TO 2 TABLETS BY MOUTH EVERY 6 HOURS NEEDED FOR MODERATE PAIN. NOT TO EXCEED 8 TABLETS DAILY 05/21 completed Not Available Not Available Not Available naltrexon e 50 mg tablet TAKE 1 TABLET BY MOUTH EVERY DAY 05/20 completed Not Available Not Available Not Available tramadol 50 mg tablet TAKE 1 TABLET BY MOUTH EVERY 6 HOURS FOR 5 DAYS NEEDED 07/15 completed Not Available Not Available Not Available lidocaine -prilocai ne 2.5 %-2.5 % topical cream 08/26 completed Not Available Not Available Not Available oxycodone -acetamin ophen 5 mg-325 mg tablet Given in ER 03/09 completed Not Available Not Available Not Available clonidine HCl 0.2 mg tablet TAKE 1 TABLET BY MOUTH TWICE DAILY 11/26 completed Not Available Not Available Not Available propranol ol 40 mg tablet take 1 tablet by mouth twice a day 05/22 completed Not Available Not Available Not Available magnesium oxide 400 mg (241.3 mg magnesium ) tablet TAKE 1 TABLET BY MOUTH EVERY DAY 10/29 completed Not Available Not Available Not Available chlordiaz epoxide 25 mg capsule Take 1 capsule twice a day by oral route for 7 days. 07/15 completed Not Available Not Available Not Available fluoxetin e 10 mg capsule TAKE 1 CAPSULE BY MOUTH EVERY DAY 05/26 completed Not Available Not Available Not Available lisinopri l 5 mg tablet TAKE 1 TABLET BY MOUTH EVERY DAY active Not Available Not Available No t Available methylpre dnisolone 4 mg tablets in a dose pack FOLLOW PACKAGE DIRECTIO NS 01/21 completed Not Available Not Available Not Available Vitamin D2 1,250 mcg (50,000 unit) capsule Take 1 capsule every week by oral route for 84 days. 08/26 completed Not Available Not Available Not Available doxycycli ne hyclate 100 mg tablet TAKE 1 TABLET BY MOUTH TWICE DAILY FOR 7 DAYS 05/20 completed Not Available Not Available Not Available naproxen 500 mg tablet 12/30 completed Not Available Not Available Not Available acamprosa te 333 mg tablet,de layed release TAKE 2 TABLETS BY MOUTH THREE TIMES DAILY active 1 tab TID alt due to sleepine ss Not Available Not Available Not Available Vivitrol 380 mg intramusc ular suspensio n,extende d release 12/30 completed Not Available Not Available Not Available quetiapin e 50 mg tablet TAKE 1 TABLET BY MOUTH EVERY DAY 05/20 completed Not Available Not Available Not Available cholecalc iferol (vitamin D3) 1,250 mcg (50,000 unit) capsule TAKE 1 CAPSULE BY MOUTH EVERY WEEK 08/26 completed Not Available Not Available Not Available oxycodone 10 mg tablet TAKE 1 TABLET BY MOUTH FOUR TIMES DAILY FOR 7 DAYS NEEDED 03/16 completed Not Available Not Available Not Available magnesium 400 mg (as magnesium oxide) tablet Take 1 tablet every day by oral route for 30 days. 2024 active Not Available Not Available Not Avai lable Vitals Date Recorded Body height Body mass index (BMI) Body weight Heart rate Oxygen saturation Oxygen saturation in Arterial blood by Pulse oximetry Systolic And Diastolic Provider Name and Address Organization Details Last Updated DateTime 5 175.26 cm 28.1 kg/m2 96160.5 5 g 110 /min 98 % 98 % 160/98 mm[Hg] Yariel Gray [facility] 5 15:40:01 Date Recorded Body height Body mass index (BMI) Body weight Heart rate Oxygen saturation Oxygen saturation in Arterial blood by Pulse oximetry Systolic And Diastolic Provider Name and Address Organization Details Last Updated DateTime 4 175.26 cm 28 kg/m2 82794.4 7 g 131 /min 97 % 97 % 154/92 mm[Hg] Leah Ward [facility] 4 15:54:41 Date Recorded Body height Body mass index (BMI) Body weight Heart rate Oxygen saturation Oxygen saturation in Arterial blood by Pulse oximetry Systolic And Diastolic Provider Name and Address Organization Details Last Updated DateTime 5 175.26 cm 29.2 kg/m2 72428.1 3 g 91 /min 98 % 98 % 124/76 mm[Hg] Leah Ward [facility] 5 14:56:43 Date Recorded Body height Body mass index (BMI) Body weight Heart rate Oxygen saturation Oxygen saturation in Arterial blood by Pulse oximetry Systolic And Diastolic Provider Name and Address Organization Details Last Updated DateTime 5 175.26 cm 29.1 kg/m2 98687.7 g 72 /min 98 % 98 % 140/78 mm[Hg] Valeria Thorpe [facility] 5 09:55:41 Date Recorded Body height Body mass index (BMI) Body weight Oxygen saturation Oxygen saturation in Arterial blood by Pulse oximetry Heart rate Systolic And Diastolic Provider Name and Address Organization Details Last Updated DateTime 5 175.26 cm 31.5 kg/m2 14338.1 7 g 97 % 97 % 84 /min 124/72 mm[Hg] ABRAHAM DEXTER [facility] 5 10:25:35 Social History Question Answer Notes LastModified by Organizat ion Details LastModified Time Tobacco Smoking Status Never Smoker Not Available [facility] 01/06/2020 03:36:23 What Was The Date Of Your Most Recent Tobacco Screening? 01/21/2025 [email or web address] Information not available 01/21/2025 Sex: Unknown Functional Status Question Answer Note LastModified by Organization D etails LastModified Time Do you or have you ever used any other forms of tobacco or nicotine? No [email or web address] Information not available 01/05/2023 Mental Status None recorded. Family History Nothing Reported. Medical History No medical history recorded. Past Encounters Encounter ID Performer Location Encounter Start Date Encounter Closed Date Diagnosis/Indication Diagnosis SNOMED-CT Code Diagnosis ICD10 Code Diagnosis IMO Codes Diagnosis Note [id number] Michi Dumont [facility] [address] [facility], [place] [address] 01/30/2018 09:34:06 01/30/2018 10:53:50 Essential hypertension 61403414 I10 not well controlled , but pt is declining any changes to his BP med regimen because once again he feels that his numbers are normal despite my informing him the contrary. we will recheck this again soon Alcoholism 4369328 F10.2 0 it is my impression that [...] admitting to today. Gastroesop hageal reflux disease 594610787 K21.9 denies any sx of ongoing gerd Paresthesia 31590257 R20 .2 - of b/l lower extremity - ?2/2 etoh - he was advised that his pain may be related to his alcohol use. he was counselled that alcohol in excess is damaging to nerve endings. - he also has a pain pattern consistent with claudicati on so we will consult vascular for evaluation of arterial pressure/b lood flow [id number] Michi Dumont [facility] [address],[place] [address] 02/13/2018 11:18:33 02/13/2018 13:30:20 Liver function tests outside reference range 709904491 R94.5 advised that his liver tests are abnormal likely due to etoh we will get an us of the liver have advised him to remain sober to alleviate liver damage Vitamin D deficiency 347 87794 E55.9 Essential hypertension 05276848 I10 still mildly elevated but, bp ok at home Paresthesia 90850016 R20 .2 interested to see if these sx improve with vitamin d replenishm ent as he was severely low will continue with prior recommenda tions as well [id number] Michi Dumont, [facility] [address], [place] [address] 03/27/2018 08:51:25 03/27/2018 09:42:05 Essential hypertension 51347902 I10 still elevated now even at home will increase med from 40 bid to 80 bid Alcoholism 8958309 F10.2 0 States he's cut back on [...] admitting to today. Gastroesop hageal reflux disease 807528641 K21.9 denies any sx of ongoing gerd Vitamin D deficiency 347 14663 E55.9 will recheck in a few more weeks still has about 5 weeks of vitamin d supplement s Steatotic liver disease 135086395 K76.0 he states he has cut back drinking about 80% he states he drinks 2 in a day and sometimes not at all we also discussed healthy diet and exercise to improve this Impacted cerumen 4738785 6 H61.23 irrigation done today- successful Acute rhinosinusitis 431 491918 J00 sx appear to be improving, benign exam today, likely viral will treat conservati vely and f/u if needed Decreased hearing 925831 001 H91.93 better after irrigation [id number] Kamini Adhikari NP, S [facility] [address] [facility] [address], [place] [address] 05/22/2018 14:49:33 05/22/2018 16:35:50 Steatotic liver disease 784243812 K76.0 Vitamin D deficiency 347 58473 E55.9 depending labs OTC dose vs continued high dose replacemen t Essential hypertension 44777700 I10 improved Hyperglycemia 14276530 R 73.9 Intermitte nt claudication 93428062 I73.9 left > right. Has appt next week [id number] Michi Dumont [facility] [address], [place] [address] 01/07/2019 09:20:13 01/07/2019 09:50:52 Harmful pattern of use of alcohol 85044149 F10.10 says that he is cutting back, hoping to stop altogether denies depression or depressive sx will consider restarting therapy if his work schedule lightens up Anemia 968601060 D64.9 Vitamin D deficiency 347 03171 E55.9 has been taking supplement [id number] Michi Dumont [facility] [address], [place] [address] 08/27/2019 15:57:35 08/27/2019 16:38:52 Harmful pattern of use of alcohol 82629251 F10.10 send referral to rehab place f/u after US and labs come in to discuss findings if there are any findings [id number] Michi Dumont [facility] [address] [facility] [address], [place] [address] 12/31/2019 14:20:21 12/31/2019 15:01:33 Lumbago with sciatica 447987030 M54.41 will discuss with about MRI and medical management specialist for eval of his chronic back pain and recurring sciatica Essential hypertension 21869583 I10 BP elevated today will monitor at next appt [id number] Michi Dumont [facility] [address] [facility] [address] [place] [facility] [place] [address] 03/09/2020 10:18:49 03/09/2020 12:11:19 Lumbago with sciatica 669931186 M54.41 Essential hypertension 78265621 I10 BP elevated today will monitor at next appt [id number] Michi Dumont DO [facility] [address] [facility] [address],[place] [address] 03/16/2020 08:08:23 03/16/2020 11:59:35 Alcoholism 0506464 F10.20 stable on medication , sees specialist for this and has not been drinking Lumbago with sciatica 20 6895523 M54.41 will follow up after MRI for better approach to treatment plan also waiting on PVSS for eval as well the patient will be provided with a note to keep him out of work for the foreseeabl e future until condition better assessed [id number] Michi Dumont DO [facility] [address] [facility],[place] [address] 04/07/2020 14:47:12 04/07/2020 16:25:18 Essential hypertension 74104140 I10 BP with fine today at office visit no interventi on needed today will not interfere with surgery Pre-surger y evaluation 143108074 Z01.818 after review of patient history and [...] been cleared for surgery by my office [id number] Michi Dumont DO [facility] [address] [facility],[place] [address] 05/21/2020 16:01:27 05/21/2020 16:29:56 Low back pain 707666755 M54.5 will fu with labs Alcohol dependence 09612 003 F10.20 discussed fu with his specialist and restart on naltrexone , as tramadol and all nacrotics have been stopped Depressive disorder 0988 9007 F32.9 discussed medication s [id number] Michi Dumont DO [facility] [address] [facility] [address],[place] [address] 06/04/2020 14:52:31 06/04/2020 16:25:27 Thrombocytopenic disorder 333530673 D69.6 will recheck labs per hospital Seizure 36770144 R56.9 most likely due acute withdrawal Alcohol withdrawal 83616 0000 F10.939 the patient is much improved from hospital stable, not currently drinking per patient and [id number] Michi Dumont [facility] [address] [facility] [address],[place] [address] 05/27/2021 11:11:26 05/27/2021 16:50:30 Essential hypertension 18392805 I10 stable with recheck Alcoholism 6743316 F10.2 1 stable Impacted cerumen 4590048 6 H61.23 scheduled for lavage [id number] Michi Dumont DO [facility] [facility] [address] [facility] [address],[place] [address] 06/10/2021 09:31:45 06/14/2021 08:50:54 Impacted cerumen in right ear 5711344113 629182 H61.21 resolved [id number] JONES VALDES [facility] Internal Medicine [address] [facility] [address],[place] [address] 10/24/2021 15:23:07 10/24/2021 15:49:30 Active or passive immunization 054045947 Z23 advised Adult [facility] th examination 951631953 Z00.00 BP is good todayBW recently excellent [id number] Michi Dumont [facility] Internal Medicine [address] [facility] [address],[place] [address] 01/17/2022 14:04:49 01/18/2022 08:55:09 Alcoholism 9989597 F10.21 started drinking againwill start on medication to help with his anxiety and hopefully decrease his desire for the alcohol Anxiety 34283295 F41.1 will start on prozac for the patient to help with the anxiety to hopefully mitigate the drinking [id number] Michi Dumont [facility] Internal Medicine [address] [facility] [address],[place] [address] 05/26/2022 13:19:46 05/26/2022 16:12:45 Alcoholism 9879926 F10.21 started drinking againwill start on medication to help with his anxiety and hopefully decrease his desire for the alcohol Thrombocyt openic disorder 370243873 D69.59 will recheck labs per hospital Seizure 82684106 Z46.89 most likely due acute withdrawal Anxiety 97881674 F41.1 will start on prozac for the patient to help with the anxiety to hopefully mitigate the drinking Essential hypertension 95887679 I10 stable with recheck Screening for malignant neoplasm of prostate 433965042 Z12.5 agreed to screening [id number] Michi Dumont [facility] Internal Medicine [address] [facility],[place] [address] 12/05/2022 14:19:04 12/05/2022 15:38:17 Alcoholism 4897466 F10.21 started drinking againwill start on medication to help with his anxiety and hopefully decrease his desire for the alcohol Anxiety 89616325 F41.1 will start on prozac for the patient to help with the anxiety to hopefully mitigate the drinking Essential hypertension 98442979 I10 starting clonidine Thrombocyt openic disorder 543925351 D69.59 stable Seizure 16650429 Z46.89 stable Sebaceous cyst of skin 511060112 L72.3 [place] [id number] Michi Dumont [facility] Internal Medicine [address] [facility],[place] [address] 01/05/2023 14:15:30 01/05/2023 14:52:36 Thrombocytopenic disorder 625874058 D69.3 stable Seizure 29833162 Z46.89 stable Alcoholism 3844406 F10.2 1 started drinking againwill start on medication to help with his anxiety and hopefully decrease his desire for the alcohol [id number] Michi Dumont DO [facility] Internal Medicine [address] [facility], [place] [address] 02/28/2023 14:01:44 02/28/2023 14:15:18 Seizure disorder 000101655 R56.9 stable Paresthesi a of upper limb 18076303 R20.2 will set up with EMG Hypomagnesemia 242310104 E83.42 will recheck levels [id number] Michi Dumont [facility] Internal Medicine [address] [facility],[place] [address] 07/16/2023 15:44:42 07/17/2023 08:17:13 Depression screening 706942478 Z13.31 discussed mood Harmful pa ttern of use of alcohol 62450196 F10.14 discussed options for patientthi nk a partial program will work for him will set him up with medication again as well Alcoholism 6646637 F10.2 1 started drinking againwill start on medication to help with his anxiety and hopefully decrease his desire for the alcohol [id number] [facility] [address] [facility], [place] [address] 05/20/2024 15:23:57 05/20/2024 16:05:23 Harmful pattern of use of alcohol 36780382 F10.14 will set up with BW recheck and recheck of his liver Essential hypertension 95071025 I10 will set up with lab work Screening for malignant neoplasm of prostate 820734830 Z12.5 agreed to screening Screening for malignant neoplasm of colon 038075033 Z12.11 will set up with screening again Palpitations 93609953 R0 0.2 agreed to US echo to check for any changes given alcohol use d/o Lipoma of back 390676426 D17.1 was much smaller, started growing quickly within the last few mos [id number] [facility] [address] [facility],[place] [address] 10/29/2024 14:50:02 10/29/2024 16:00:28 Depression screening 633674916 Z13.31 discussed mood Productive cough 5229469 5 R05.8 413891 [id number] [facility] [address] [facility], [place] [address] 11/26/2024 09:51:04 11/26/2024 10:19:46 Anxiety 48363241 F41.1 stable Alcohol use disorder 227 5282493 F10.90 11906853 still sober since his d/c from rehab Bronchitis 08484898 J40 25224 resolved Productive cough 6125869 5 R05.8 196331 resolved [id number] DO Samantha Marino Internal Medicine [address] [facility] [address],[place] [address] 01/21/2025 10:12:56 01/21/2025 10:45:38 Depression screening 808685263 Z13.31 discussed mood Postural dizziness 54119 7008 R42 445660 Impaired f asting glycemia 891755731 R73.01 199493 History of clinical finding in subject 597065591 Z87.898 94204895 Screening for malignant neoplasm of prostate 337998415 Z12.5 215340 agreed to screening Health Concerns Section Related Observation LastModified by Organization Detai ls LastModified Time None Recorded Concern Status LastModified by Organization Details LastModified Time None Recorded Advance Directives Directive None Recorded Payers Insurance Date Sequence Insurance Name Policy Number Policy Norris Covered Member ID Norris Member ID Guarantor Name 10/29/2024 1 [facility] [id number] Saleem Rudd [id number] Saleem Rudd 10/29/2024 1 [facility] [id number] Saleem Rudd [id number] Saleem Rudd 01/18/2025 1 [facility] [id number] Saleem Rudd [id number] Saleem Rudd Notes Date Note Type Note Provider Name a nd Address Organization Details Recorded Time 4 text/html ROS as noted in the HPI f/u appointment for drinking the patient is [...] him feel goodthe patient JONES VALDES [address] [place], [address], [facility] 07/16/2023 16:19:59 5 text/html ROS as noted in the HPI f/u lab work the patient is here [...] declines at this time JONES VALDES [address] [place], [address], [facility] 05/20/2024 16:09:42 5 text/html ROS as noted in the HPI the patient is feeling good went to rehab for about 20 daysdoing welld/c acamprosate 333 mg take 2 tabs TIDwill continue on the medication HTN: today in the office the patient BP is 124/76 L arm the patient is doing well on the BP medication with no side effects and no adjustment of their medications needed today at the appointment well-controlled on medication denies chest pain, sob, ankle swelling, orthopnea, palpitations has nasal congestion and coughfeels phlegm-y cough in his throat, probably allergies/congestiongi aayush medrol and benzonatate the patient had blood work done already with the rehab facility [facility] ([facility] [place])will see if I can get records JONES VALDES [address] [place], [address], [facility] 10/29/2024 15:14:56 5 text/html ROS as noted in the HPI f/u 1 mos recheck the patient reports that the medicaton is still workingstill abstaining from alcohol, feels good appetite is good and sleeping goodno major concerns currently related to the alcohol use d/camila has routine f/u with his therapist/psych to monitor his progress and mood denies any depressive or anxious symptomshe is doing good at work, doesn't feel as overwhelmed as he did previously the patient reports that his cough is gone, feels better, had one day he was a little more congested but it didn't linger denies chest pain, fever, chills no concerns today per patientwill have him fu in 2 to 3 mos now, but knows to call sooner if there is any issues JONES VALDES [address] [place], [address], [facility] 11/26/2024 10:13:14 5 text/html ROS as noted in the HPI 1 mos f/u the patient is here today for his one month follow upthe patient is noticing dizziness with positional changesprobable orthostatic hypotension, drinking enough waterrecommended more careful movements has been 4 months sober the patient has gained weight, noticeablythe patient reports that he has been craving sugar, which is commonwill check his levels, wants to see what his A1c is looking like mood is goodno other questions today JONES VALDES [address] [place], [address], [facility] 01/21/2025 10:45:37
--- OUTSIDE RECORDS SUMMARY | 2025-01-21 21:33 | XMS_ITS | Continuity of Care Document ---
Author Organization [place] [facility], [facility] Address [address] [facility] [place] [address] [place] [address] Assessment No assessment recorded. Plan of Treatment Reminders Order Date Submit Date Provider Last Modified By Organization Details Last Modified Time Details Appointments FOLLOW UP 15 2024 10:15A JONES DAVIS Not available Not available Not available FOLLOW UP 15 2025 09:30A M JONES VALDES Not available Not available Not available Lab hemoglobi n A1c, QN, blood 2024 025 [facility], [address] [place] [address], [address], 01/21/2025 10:43:27 CMP, serum or plasma 2024 025 [facility], [address] [place] [address], [address], 01/21/2025 10:43:26 CBC w/ auto diff 2024 025 [facility], [address] [place] [address], [address], 01/21/2025 10:43:26 PSA, total + free, serum or plasma 2024 025 [facility], [address] [place] [address], [address], 01/21/2025 10:43:50 vitamin B12 + folate, serum or blood 2024 025 [facility], [address] [place] [address], [address], 01/21/2025 10:43:26 iron + TIBC + ferritin, serum 2024 [facility], [address] [place] [address], [address], 01/21/2025 10:43:26 TSH + free T4, serum 2024 025 [facility], [address] [place] [address], [address], 01/21/2025 10:43:26 vitamin B1 (thiamine ), blood 2024 025 [facility], [address] [place] [address], [address], 01/21/2025 10:43:26 C reactive protein, QN, serum or plasma 2024 [facility], [address] [place] [address], [place], [address], 01/21/2025 10:43:26 ESR (erythroc yte sedimenta tion rate), blood 2024 025 [facility], [address] [place] [address], [address], 01/21/2025 10:43:26 Referral None recorded. Procedures None recorded. Surgeries None recorded. Imaging None recorded. Medication Orders None recorded. Patient TargetsNo targets recorded. Patient InstructionsNo instructions recorded. Reason for Referral None Reported. Problems Name Problem SNOMED Code Status Onset Date Resolution Date Notes Provider Name and Address Organization Details Recorded Time Gastritis 6145759 Active 2017 [facility] 8 13:59:43 Hiatal hernia 64859766 Active 2017 GAIL Langston [facility] 8 13:59:49 Gastroeso phageal reflux disease 297726028 [facility] 2017 [facility] 8 13:59:54 Venous varices 421803290 Active 2017 [facility] 14:00:18 Alcoholis m 7590430 Active [address], [address], [facility] 8 09:51:29 Essential hypertens ion 08815806 Active [address], [address], [facility] [place] 8 09:51:36 Vitamin D deficienc y 42565173 Active [address], [address], [facility] [place] 9 09:06:43 Steatotic liver disease 101520459 Active [address], [address], [facility] Medicine 9 09:06:53 Impacted cerumen in right ear 662953023638 9103 Active 2021 JONES VALDES [address] [place] [address], [address], [facility] [place] [facility] 2 09:59:20 Anxiety 24839205 Active 2021 JONES VALDES [address] [place] [address], [address], [facility] [place] [facility] 5 10:12:40 Thrombocy topenic disorder 395880525 Active 2022 JONES VALDES [address] [place] [address], [address], [facility] 3 13:40:14 Seizure 64108170 Active 2022 JONES VALDES [address] [place] [address], [address], [facility] [place] [facility] 3 13:40:17 Sebaceous cyst of skin 170799036 Active 2022 JONES VALDES [address] [place] [address], [address], [facility] [place] [facility] 3 14:45:03 Hypomagne semia 701431609 Active 2022 JONES VALDES [address] [place] [address], [address], [facility] [place] [facility] 3 14:38:05 Paresthes ia of upper limb 47421986 Active 2022 JONES VALDES [address] [place] [address], [address], [facility] [place] 3 14:07:13 Seizure disorder 460183247 Active 2022 JONES VALDES [address] [place] [address], [address], [facility] [place] 3 14:12:01 Bilateral carpal tunnel syndrome 806525666335 91316 Active 2023 JONES VALDES [address] [place] [address], [address], [facility] 4 11:16:10 Alcohol withdrawa l 149078565 Active 2023 JONES VALDES [address] [place] [address], [address], [facility] [place] [facility] 4 14:13:00 Harmful pattern of use of alcohol 26244715 Active 2023 JONES VALDES [address] [place] [address], [address], [facility] [place] 4 16:07:53 Palpitati ons 32209819 Active 2024 JONES VALDES [address] [place] [address], [address], [facility] [place] 5 15:58:02 Lipoma of back 033813183 Active 2024 JONES VALDES [address] [place] [address], [address], [facility] [place] 5 16:01:19 Productiv e cough 35114620 Active 2024 JONES VALDES [address] [place] [address], [address], [facility] 5 15:09:59 Alcohol use disorder Active 2024 JONES VALDES [address] [place] [address], [address], [facility] [place] [facility] 5 12:41:29 Bronchiti s 00956377 Active 2024 JONES VALDES [address] [place] [address], [address], [facility] 5 10:12:06 Postural dizziness 854726608 Active 2024 JONES VALDES [address] [place] [address], [address], [facility] [place] 5 10:36:36 Impaired fasting glycemia 540830141 Active 2024 JONES VALDES [address] [place] [address], [address], [facility] [place] [facility] 5 10:36:56 Problem Notes None recorded. Procedures Surgical History Date Name Laterality Status Provider Name and Address Organization Details Recorded Time 2 Cerumen Removal completed JONES VALDES [address] [place] [address], [address], [facility] [place] [facility] 06/10/2021 09:59:14 9 Cerumen Removal completed June ADRIENNE Acuna [address] [place] [address], [address], [facility] 03/27/2018 09:16:46 Imaging Results None [...] Updated DateTime 5 175.26 cm 31.5 kg/m2 13083.1 7 g 97 % 97 % 84 /min 124/72 mm[Hg] ABRAHAM Singh [facility] 5 10:25:35 Social History Question [...] other forms of tobacco or nicotine? No [email or web address] Information not available 01/05/2023 Mental Status None recorded. Family History Nothing Reported. Medical History No medical history recorded. Past Encounters Encounter ID Performer Location Encounter Start Date Encounter Closed Date Diagnosis/Indication Diagnosis SNOMED-CT Code Diagnosis ICD10 Code Diagnosis IMO Codes Diagnosis Note [id number] Michi Dumont [facility] Internal Medicine [address] [facility],[place] [address] 01/21/2025 10:12:56 01/21/2025 10:45:38 Depression screening 477954230 Z13.31 discussed mood Postural dizziness 39674 7008 R42 730169 Impaired f asting glycemia 117800826 R73.01 909521 History of clinical finding in subject 296832426 Z87.898 76298660 Screening for malignant neoplasm of prostate 447923304 Z12.5 231514 agreed to screening Health Concerns Section Related Observation LastModified by Organization Detai ls LastModified Time None Recorded Concern Status LastModified by Organization Details LastModified Time None Recorded Payers Encounter Date Sequence Insurance Name Policy Number Policy Norris Covered Member ID Norris Member ID Guarantor Name 01/21/[address] [place] [address] [id number] Saleem Rudd [id number] Saleem Rudd Notes Date Note Type Note Provider Name a nd Address Organization Details Recorded Time 5 text/html ROS as noted in the [...] goodno other questions today JONES VALDES [address] [facility], [place], [address], [facility] 01/21/2025 10:45:37
--- OUTSIDE RECORDS SUMMARY | 2025-01-21 21:33 | XMS_ITS | Encounter Summary ---
Author Organization [facility] Address [address] [address] Phone Care Team Providers Care Cosmetic Chemist Name Role Phone Julia Michi Aquino DO Primary Care Provider [phone] Michi Dumont DO Unavailable Encounter Details Date Type Department Care Team (Latest Contact Info) Description 01/06/2020 Transcribe Orders Virtual Department [address] [place] [address] Kalani Banks PA [address] [facility] [place] [address] Right-sided low back pain with right-sided sciatica, unspecified chronicity (Primary Dx) Social History Tobacco Use Types [...] as of this encounter Visit Diagnoses Diagnosis Right-sided low back pain with right-sided sciatica, unspecified chronicity- Primary documented in this encounter Care Teams Cosmetic Chemist Relationship Specialty Start Date End Date Michi Dumont DO PCP - General Internal Medicine 02/15/18 Michi Dumont DO [address] [place] [address] Insurance Assigned Provider 02/08/20 01/08/21 documented as of this encounter Additional Source Comments The information contained in this document represents components of the legal health record. It is not the complete legal health record.[facility]
--- OUTSIDE RECORDS SUMMARY | 2025-01-21 21:33 | XMS_ITS | Encounter Summary ---
Author Organization [facility] Address [address] [place] [address] Phone Care Team Providers Care Teletype Mechanic Name Role Phone Yaniryann Michi Aquino DO Primary Care Provider [phone] Michi Dumont DO Unavailable Encounter Details Date Type Department Care Team (Latest Contact Info) Description 05/23/2018 Transcribe Orders Virtual Department [address] [place] [address] Kamini Adhikari, ELEMENTARY ASSISTANT TEACHER [address] [place] [address] Fatty (change of) liver, not elsewhere classified (Primary Dx) Social History Tobacco Use Types Packs/Day Years Used Date Smoking Tobacco: Former Cigarettes 0 04/05/1989 - 04/05/1989 Smokeless Tobacco: Never Sex and Gender Information Value Date Recorded Sex Assigned at Not on file Legal Sex Male 9:48 PM EDT Gender Identity Not on file Sexual Orientation Not on file documented as of this encounter Plan of Treatment Not on file documented as of this encounter Visit Diagnoses Diagnosis Fatty (change of) liver, not elsewhere classified- Primary documented in this encounter Care Teams Teletype Mechanic Relationship Specialty Start Date End Date Michi Dumont DO PCP - General Internal Medicine 02/15/18 Michi Dumont DO [address] [place] [address] [email or web address] Insurance Assigned Provider 02/08/20 01/08/21 documented as of this encounter Additional Source Comments The information contained in this document represents components of the legal health record. It is not the complete legal health record.[facility]
--- OUTSIDE RECORDS SUMMARY | 2025-01-21 21:33 | XMS_ITS | Encounter Summary ---
Author Organization [facility] Address [address] [place] [phone] Phone Care Team Providers Care Wastewater Process Engineer Name Role Phone Unknown, Unknown Primary Care Provider Fátima Dumont, Michi Aquino DO Primary Care Provider [phone] iMchi Dumont Kenia DO Unavailable Encounter Details Date Type Department Care Team (Late st Contact Info) Description 02/13/2018 Ancillary Orders Virtual Department [address] [place] [address] Elizabeth Acuna, JENNY [address] Deloris [address]. [address] [place] [address] [email or web address] Abnormal liver function tests Social History Tobacco Use Types Packs/Day Years Used Date Smoking Tobacco: Never Assessed Sex and Gender Information Value Date Recorded Sex Assigned at Not on file Legal Sex Male 9:48 PM EDT Gender Identity Not on file Sexual Orientation Not on file documented as of this encounter Plan of Treatment Not on file documented as of this encounter Results * US Abdomen Complete (02/27/2018 9:40 AM EST) Anatomical Region Laterality Modality Abdomen Ultrasound 02/27/2018 11:5 9 AM EST Impressions 02/27/2018 12:01 PM EST 1. Diffusely hyperechoic and mildly inhomogeneous liver with the appearance of fatty infiltration. No liver masses. 2. Normal gallbladder POS - [id number] Narrative 02/27/2018 12:01 PM EST EXAM: US ABDOMEN COMPLETE HISTORY: ABNORMAL RESULTS OF LIVER FUNCTION STUDIES TECHNIQUE: Complete abdominal ultrasound, grayscale and color Doppler. COMPARISON: None. FINDINGS: Proximal IVC: Normal in diameter. Abdominal Aorta: Normal in diameter. Liver: Normal liver size. Echotexture of the liver is normal. Liver echogenicity is diffusely increased and mildly inhomogeneous with the appearance of diffuse fatty infiltration. The liver surface is smooth. There are no liver masses. Gallbladder: No shadowing gallstones. No gallbladder wall thickening or pericholecystic fluid. Negative sonographic Schmidt sign. Bile Ducts: No intrahepatic or extrahepatic biliary ductal dilatation. The common duct at the charly hepatis measures 3 mm, normal. Pancreas: The head and body are normal. The tail is obscured, unable to visualize. Spleen: Normal size. Measures 10.2 cm. Right kidney: Normal cortical echogenicity. Measures 12.0 cm in length. No hydronephrosis. No shadowing renal calculi. Left kidney: Normal cortical echogenicity. Measures 12.7 cm in length. No hydronephrosis. No shadowing renal calculi. Ascites: None. Procedure Note Jeanette Delgado MD - 02/27/2018 EXAM: US ABDOMEN COMPLETE HISTORY: ABNORMAL RESULTS OF LIVER FUNCTION STUDIES TECHNIQUE: Complete abdominal ultrasound, grayscale and color Doppler. COMPARISON: None. FINDINGS: Proximal IVC: Normal in diameter. Abdominal Aorta: Normal in diameter. Liver: Normal liver size. Echotexture of the liver is normal. Liverechogenicity is diffusely increased and mildly inhomogeneous with theappearance of diffuse fatty infiltration. The liver surface is smooth.There are no liver masses. Gallbladder: No shadowing gallstones. No gallbladder wall thickening orpericholecystic fluid. Negative sonographic Schmidt sign. Bile Ducts: No intrahepatic or extrahepatic biliary ductal dilatation.The common duct at the charly hepatis measures 3 mm, normal. Pancreas: The head and body are normal. The tail is obscured, unable tovisualize. Spleen: Normal size. Measures 10.2 cm. Right kidney: Normal cortical echogenicity. Measures 12.0 cm in length.No hydronephrosis. No shadowing renal calculi. Left kidney: Normal cortical echogenicity. Measures 12.7 cm in length. Nohydronephrosis. No shadowing renal calculi. Ascites: None. IMPRESSION: 1. Diffusely hyperechoic and mildly inhomogeneous liver with theappearance of fatty infiltration. No liver masses. 2. Normal gallbladder POS - [id number] June Armand ALVARADO IMG US ABDOMEN Final Result documented in this encounter Visit Diagnoses Diagnosis Abnormal liver function tests Abnormal liver function tests documented in this encounter Care Teams Wastewater Process Engineer Relationship Specialty Start Date End Date Unknown, Unknown, MD PCP - General 02/04/18 02/14/18 Michi Dumont DO [email or web address] PCP - General Internal Medicine 02/15/18 Michi Dumont DO [address] [place] [id number] [email or web address] Insurance Assigned Provider 02/08/20 01/08/21 documented as of this encounter Additional Source Comments The information contained in this document represents components of the legal health record. It is not the complete legal health record.[facility]
--- OUTSIDE RECORDS SUMMARY | 2025-01-21 21:33 | XMS_ITS | Encounter Summary ---
Author Organization [facility] Address [address] [address] Phone Care Team Providers Care Seed Mill Superintendent Name Role Phone Michi Dumont DO Primary Care Provider [phone] Michi Dumont DO Unavailable Encounter Details Date Type Department Care Team (Late st Contact Info) Description 03/09/2020 Transcribe Orders Virtual Department [address] [place] [address] Michi Dumont DO [address] [facility] [place] [address] [email or web address] Low back pain with sciatica, sciatica laterality unspecified, unspecified back pain laterality, unspecified chronicity (Primary Dx) Social History Tobacco [...] as of this encounter Visit Diagnoses Diagnosis Low back pain with sciatica, sciatica laterality unspecified, unspecified back pain laterality, unspecified chronicity- Primary documented in this encounter Care Teams Seed Mill Superintendent Relationship Specialty Start Date End Date Michi Dumont DO [email or web address] PCP - General Internal Medicine 02/15/18 Michi Dumont DO [address] [place] [address] Insurance Assigned Provider 02/08/20 01/08/21 documented as of this encounter Additional Source Comments The information contained in this document represents components of the legal health record. It is not the complete legal health record.[facility]
--- OUTSIDE RECORDS SUMMARY | 2025-01-21 21:33 | XMS_ITS | Clinical Summary ---
Author Organization [facility] Address [address] [employer] [facility] [address] [place] [phone] Phone Care Team Providers Care Distilling Department Supervisor Name Role Phone Michi Dumont DO Primary Care Provider [phone] Allergies No known active allergies Medications ergocalciferol (DRISDOL) 50,000 unit capsule Vitamin D2 50,000 unit capsule Take 1 capsule every week by oral route for 84 days. Active propranolol (INDERAL) 80 MG immediate release tablet propranolol 80 mg tablet Take 1 tablet twice a day by oral route for 90 days. Active lisinopril (PRINIVIL,ZESTR IL) 5 MG tablet TAKE 1 TABLET BY MOUTH ONCE DAILY. 90 tablet 5 1 Active Active Problems Problem Noted Date Diagnosed Date Hypertension 04/05/2018 Assessment & Plan (06/10/2018 9:41 AM EDT): Improved although not at goal but he tells me he has not taken his medications in 2 days because he had a work 72 hours straight. Assessment & Plan (04/05/2018 12:05 PM EST): Still markedly elevated. I taken the liberty of adding 5 mg of lisinopril and ordering a metabolic profile for 2 or 3 months down the line. ECG reveals a sinus rhythm at 74 and I cannot exclude an old septal infarct but I believe this is lead placement. Leg pain, diffuse, left 04/05/2018 Assessment & Plan (04/05/2018 12:04 PM EST): This actually sounds more orthopedic than it is vascular. Muscles are excellent so I do not believe this is an arterial disease. His varicosities are impressive but he has no edema with the possibility of discomfort I believe still exists so I have asked him to have a venous study done. If this is negative he may need an orthopedic evaluation. Varicose veins of other specified sites 01/30/20 18 Assessment & Plan (06/10/2018 9:42 AM EDT): His venous study confirms significant varicose veins and reflux. I am going to have him meet with Mike Jimenez to arrange for an ablation. Social History Tobacco Use Types Packs/Day Years Used Date Smoking Tobacco: Former Cigarettes 0 04/05/1989 - 04/05/1989 Smokeless Tobacco: Never Tobacco Cessation:Counseling Given: No Alcohol Use Standard Drinks/Week Comments Yes 1 [...] on file Sexual Orientation Not on file Last Filed Vital Signs Vital Sign Reading Time Taken Comments Blood Pressure 144/82 08/19/2018 11:41 AM EDT Pulse 91 08/19/2018 11:41 AM EDT Temperature - - Respiratory Rate - - Oxygen Saturation 97% 08/19/2018 11:41 AM EDT Inhaled Oxygen Concentration - - Weight 90.9 kg (200 lb 8 oz) 08/19/2018 11:41 AM EDT Height 172.7 cm (5' 8 ) 08/19/2018 11:41 AM EDT Body Mass Index 30.49 08/19/2018 11:41 AM EDT Plan of Treatment Health Maintenance Due Date Last Done Comments Adult Td,Tdap Booster 1959 BLOOD PRESSURE 1959 DEPRESSION SCREENING 1971 SMOKING Hx and SMOKELESS TOBACCO SCREENING 09/09/1972 HIV ONE-TIME SCREENING (18-65 YEARS) 09/09/1977 COLOGUARD 09/09/2004 COLONOSCOPY 09/09/2004 COLORECTAL CANCER SCREENING 09/09/2004 FIT TEST 09/09/2004 FOBT 09/09/2004 SIGMOIDOSCOPY 09/09/2004 VIRTUAL COLONOSCOPY 09/09/2004 PNEUMOCOCCAL VACCINES (50+ years) (1 of 1 - PCV) 09/09/2009 ZOSTER VACCINES (1 of 2) 09/09/2009 CREATININE LEVEL 03/03/2024 03/03/2023, 06/2021, 05/28/2020, Additional history exists POTASSIUM LEVEL 03/03/2024 03/03/2023, 04/0 06/2021, 05/28/2020, Additional history exists ABDOMINAL AORTIC ANEURYSM (AAA) SCREENING 09/09/2024 LIPID PANEL 2024 09/11/2019 INFLUENZA VACCINE (#1) 2024 COVID-19 VACCINE ( - season) 2024 RSV VACCINE (1 - 1-dose 75+ series) 09/09/2034 HEPATITIS C SCREENING Completed 06/06/2021 , 01/15/2019, 01/15/2019, Additional history exists HEPATITIS A VACCINES Aged Out No long er eligible based on patient's age to complete this topic HIB VACCINES Aged Out No longer eligi ble based on patient's age to complete this topic MENINGOCOCCAL VACCINES (ACWY) Aged Out No longer eligible based on patient's age to complete this topic MENINGOCOCCAL VACCINES (B) Aged Out N o longer eligible based on patient's age to complete this topic Medical Devices Not on file Procedures Procedure Name Priority Date/Time Associated Diagnosis Comments COMPREHENSIVE METABOLIC PANEL (CMP) Routine 03/03/2023 9:15 AM EST Paresthesia of skin Hypomagnesemia HEPATITIS C ANTIBODY, QUALITATIVE Routine 06/06/2021 8:32 AM EDT H/O alcohol dependence LIPID PANEL Routine 09/11/2019 9:39 AM EDT Alcohol abuse, continuous from Last 3 Months or Most Recently Relevant to Health Maintenance Results * (ABNORMAL) Comprehensive metabolic panel (03/03/2023 9:15 AM EST) SODIUM 142 133 - 146 mmol/L [facility] POTASSIUM 4.2 3.3 - 5.1 mmol/L [facility] CHLORIDE 99 96 - 108 mmol/L [facility] CO2 24 21 - 35 mmol/L [facility] BUN 15 6 - 19 mg/dL [facility] CREATININE 0.80 0.5 - 1.5 mg/dL [facility] GLUCOSE 154(H) 70 - 99 mg/dL [facility] ALBUMIN 4.7 3.9 - 4.8 g/dL [facility] TOTAL PROTEIN 7.3 6.5 - 8.0 g/dL [facility] CALCIUM 9.1 8.4 - 10.3 mg/dL [facility] ALKALINE PHOSPHATASE 101 39 - 117 U/L [facility] TOTAL BILIRUBIN 0.4 0.0 - 1.2 mg/dL [facility] AST 66(H) 0 - 37 U/L [facility] ALT 33 0 - 40 U/L [facility] GLOBULIN 2.6 1 - 4.8 g/dL [facility] EGFR 99 >59 mL/min/1.7 3m2 [facility] Comment:Estimated glomerular filtration rate calculated using the CKD-EPI refit equation. ANION GAP 23(H) 10 - 20 mmol/L [facility] Blood 03/03/2023 9:15 AM EST 03/03/2023 9:19 AM EST us [facility] BKR ORDERABLES Fi nal Result [address] [phone] * Hepatitis C antibody, qualitative (06/06/2021 8:32 AM EDT) HCV NON-REACTIV E NON-REACTI VE [facility] Blood 06/06/2021 8:32 AM EDT 06/06/2021 8:36 AM EDT us [facility] BKR ORDERABLES Fi nal Result Performing Organization Address City/[facility]/ZIP Co de Phone Number [address] [phone] * (ABNORMAL) Lipid panel (09/11/2019 9:39 AM EDT) HDL 75 mg/dL [facility] Comment: Interpretation <40 mg/dL: Low HDL cholesterol (major risk factor for CHD) Greater than or equal to 60 mg/dL: High HDL cholesterol ( negative risk factor for CHD) HDL - cholesterol is affected by a number of factors, e.g. smoking, excerise, hormones, sex and age. CHOLESTEROL 230 0 - 240 mg/dL [facility] TRIGLYCERIDES 221(H) 30 - 160 mg/dL [facility] LDL 111 50 - 129 mg/dL [facility] Comment: LDL levels in terms of risk for coronary heart disease: <100 mg/dL: Optimal 100-129 mg/dL: Near or above optimal 130-159 mg/dL: Borderline high 160-189 mg/dL: High >190 mg/dL: Very High CARDIAC RISK RATIO 3.1(L) 3.4 - 5.0 C [facility] Blood 09/11/2019 9:39 AM EDT 09/11/2019 9:43 AM EDT [facility] BKR ORDERABLES Fi nal Result Performing Organization Address [facility]/ZIP Co de Phone Number [address] [phone] from Last 3 Months or Most Recently Relevant to Health Maintenance Insurance [facility] HMO HMO O [facility] Care Teams Distilling Department Supervisor Relationship Specialty Start Date End Date Michi Dumont DO [email or web address] PCP - General Internal Medicine 02/15/18 Additional Source Comments The information contained in this document represents components of the legal health record. It is not the complete legal health record.[facility]
[2025-01-22 12:38] LABS: Free Prostate Spec Ag 0.5 ng/mL; Percent Free Prostate Spec Ag 19 % (calc) (>25)
== END 2025-01-21 10:55 | disposition home or self-care (01) ==
LOC: HO.MANLDS 10:54
PROVIDERS: Visit Provider Physician Assistant
DX: Z12.5 Encounter for screening for malignant neoplasm of prostate (principal); R73.01 Impaired fasting glucose; Z87.898 Personal history of other specified conditions; Z13.29 Encounter for screening for other suspected endocrine disorder; Z13.0 Encounter for screening for diseases of the blood and blood-forming organs and certain disorders involving the immune mechanism
CPT/HCPCS: 36415; 80053; 82607; 82728; 82746; 83036; 83540; 84154; 84425; 84443; 85025; 85652; 86140